=== PATIENT | female | born 1980 | race Caucasian/White ===

== ENCOUNTER 2020-04-09 14:10 | Inpatient (IN) | payer BC, OTHER ==
[2020-04-09 14:49] LABS: #Lymphocytes 1.5 thou/uL (1.20-3.40); #Monocytes 1.5 thou/uL (0.11-0.59); #Neutrophils 11.7 thou/uL (1.40-6.50); %Eosinophils 0.1 % (0.0-10.0); %Lymphocytes 10.5 % (21.0-51.0); %Monocytes 9.9 % (0.0-10.0); %Neutrophils 79.5 % (42.0-75.0); Hemoglobin 11.6 g/dL (12.0-16.0); Mean Corpuscular HGB CONC 35.4 g/dL (32.0-36.0); Mean Corpuscular Hemoglobin 32.8 pg (27.0-31.0); Mean Corpuscular Volume 92.6 fL (78.0-98.0); Mean Platelet Volume 7.4 fL (7.4-10.4); Platelet Count 371 thou/uL (130-400); RBC Distribution Width 12.5 % (11.5-14.5); Red Blood Cell (RBC) Count 3.53 mill/uL (4.20-5.40); White Blood Cell (WBC) Count 14.7 thou/uL (4.8-10.8)
[2020-04-09 14:56] LABS: BHCG - Serum Negative (NEGATIVE); Pregs Control Background? CLEAR/WHITE (CLR/WHITE); Pregs Control Bar Appear? YES (CONTROL BAR)
[2020-04-09 15:05] LABS: ALT (SGPT) 253 U/L (8-55); AST (SGOT) 876 U/L (5-34); Albumin 4.3 g/dL (3.5-5.0); Alkaline Phosphatase 56 U/L (40-110); Anion Gap 34 mmol/L (10-20); BUN (Urea Nitrogen) 79 mg/dL (7.0-18.7); Bilirubin, Total 0.6 mg/dL (0.2-1.2); Calc. Creatinine Clearance 0 mL/min (70-130); Calcium 7.4 mg/dL (7.8-10.44); Carbon Dioxide 20 mmol/L (22-29); Chloride 88 mmol/L (98-107); Estimated GFR-MDRD 5; Globulin 3.3 g/dL (2.4-3.5); Glucose 100 mg/dL (70-105); Potassium 5.6 mmol/L (3.5-5.1); Protein, Total 7.6 g/dL (6.0-8.3); Sodium 136 mmol/L (136-145)
[2020-04-09 15:08] LABS: Bilirubin Negative (Negative); Blood, Urine 1+ (Negative); Clarity Turbid (Clear); Glucose, Urine (Dipstick) 70 mg/dL (Negative); Leukocyte Negative Leu/uL (Negative); Nitrite Negative (Negative); Protein, Urine (Dipstick) 100 mg/dL (Neg-Trace); RBC/HPF 0-3 HPF (0-3); Squamous Epithelial 0-3 HPF (0-3); Urobilinogen Normal mg/dL (Less than 2); WBC/HPF 0-3 HPF (0-3)
[2020-04-09 15:10] LABS: Acetaminophen Less than 6.0 mcg/mL (10.0-30.0); Alcohol Less than 10 mg/dL (Less than 10); Salicylate Less than 8.0 mg/dL (15.0-30.0)
[2020-04-09 15:10] LABS: Amphetamine Not Detected (NotDetected); Barbiturates Screen Not Detected (NotDetected); Benzodiazepine Screen Detected (NotDetected); Cocaine Metabolite Screen Not Detected (NotDetected); Medtox Control Line Valid? VALID (VALID); Medtox Reader # READER 4; Methadone Not Detected (NotDetected); Methamphetamine Not Detected (NotDetected); Opiate Screen Detected (NotDetected); Oxycodone Screen Not Detected (NotDetected); Phencyclidine (PCP) Not Detected (NotDetected); THC/Cannabinoid Screen Not Detected (NotDetected); Tricyclic Screen Detected (NotDetected)
[2020-04-09 15:16] LABS: Bacteria/HPF None Seen HPF (None Seen); Renal Epithelial 0-3 HPF (None Seen); Transitional Epithelial 0-3 HPF (None Seen)
[2020-04-09] MEDS ORDERED: Ondansetron PF 4 MG/2 ML Vial ONE (15:26)
[2020-04-09] MEDS ORDERED: Aspirin 81 mg Enteric Coated Tablet ONE (15:26)
[2020-04-09 15:36] LABS: CKMB 149.1 ng/mL (0-6.6)
[2020-04-09] MEDS ORDERED: Senokot S 8.6-50 MG TAB PO PRN (15:38)
--- NOTE | 2020-04-09 15:38 | RAD ---
RADIOGRAPH CHEST 1 VIEW: DATE: 04/09/2020 TIME: 2:54 PM HISTORY: 39-year-old female with nausea and vomiting COMPARISON: none FINDINGS: Mildly elevated right hemidiaphragm with subsegmental atelectasis at the base of right lower lobe. Th e rest of the visualized lung leija are clear. No cardiomegaly. No pneumothorax. IMPRESSION: Mildly elevated right hemidiaphragm with subsegmental atelectasis at base of right lower lobe.
--- NOTE | 2020-04-09 15:47 | RAD ---
RADIOGRAPH LEFT FEMUR 2VIEWS: DATE: 04/09/2020 HISTORY: 39-year-old female with left thigh pain FINDINGS: There is no evidence of fracture, periostitis, permeative lesion, osteolytic lesion, or osteoblastic lesion. No radiopaque foreign body, abnormal soft tissue calcification, or subcutaneous emphysema is identified. IMPRESSION: Negative
[2020-04-09] MEDS ORDERED: Morphine 4 MG/ML VIAL ONE (16:04)
[2020-04-09] MEDS ORDERED: Sodium Chloride 0.9% 1,000 ML IV SCH (16:15)
[2020-04-09 16:57] LABS: INR-International Normal Ratio 1.1; Prothrombin Time 14.1 sec (12.0-14.7)
[2020-04-09 17:04] LABS: Anion Gap 25 mmol/L (10-20); BUN (Urea Nitrogen) 75 mg/dL (7.0-18.7); Calc. Creatinine Clearance 0 mL/min (70-130); Calcium 6.3 mg/dL (7.8-10.44); Carbon Dioxide 19 mmol/L (22-29); Chloride 95 mmol/L (98-107); Estimated GFR-MDRD 6; Glucose 96 mg/dL (70-105); Lipase 454 U/L (8-78); Potassium 4.4 mmol/L (3.5-5.1); Sodium 135 mmol/L (136-145)
[2020-04-09 17:08] LABS: PTT 19.1 sec (22.9-36.1)
[2020-04-09 17:13] LABS: D-Dimer Test 4.28 *mcg/mL (0.27-0.43)
[2020-04-09 17:22] LABS: Troponin I 0.113 ng/mL (< 0.028)
[2020-04-09 17:23] LABS: Ferritin 222.95 ng/mL (10-291); Thyroid Stimulating Hormone 0.9749 uIU/mL (0.35-4.94)
[2020-04-09 17:40] LABS: HBCM Index 0.08 S/CO (0-0.79); HBSAg Index 0.09 S/CO (0-0.99); Hep A IgM AB Non-Reactive (NonReactive); Hep A IgM S/CO 0.14 S/CO (0-0.79); Hep B Surf Ag Non-Reactive S/CO (NonReactive); Hep C IgG Ab Non-Reactive (NonReactive); Hep C Index 0.26 S/CO (0-0.79); Hepatitis B Core IgM Abs Non-Reactive (NonReactive)
--- NOTE | 2020-04-09 19:03 | ULT ---
RENAL SONOGRAM: History: Anuria FINDINGS: Right kidney is 8.2 cm length and left is 9.9 cm. Each has a normal appearance without evidence of ma ss, stone, or hydronephrosis. Urinary bladder is decompressed by a Norwood catheter. IMPRESSION: No abnormalities are demonstrated. POS: BST
[2020-04-09] MEDS ORDERED: tiZANidine HCl 4 MG TAB PO SCH (21:00)
[2020-04-09] MEDS: Sodium Chloride 0.9% 1,000 ML IV SCH ×2 (21:06→23:11)
[2020-04-09] MEDS: Acetaminophen 325 MG TAB PO PRN (21:06)
[2020-04-09] MEDS: Diazepam 5 MG TAB PO SCH (21:06)
[2020-04-09 23:50] LABS: CKMB 158.7 ng/mL (0-6.6)
[2020-04-10] MEDS: oxyCODONE/Acetaminophen 5 mg/325 mg Tablet PO PRN ×2 (00:04→08:53)
[2020-04-10 04:37] LABS: #Eosinphils 0.1 thou/uL (0.0-0.7); #Lymphocytes 1.4 thou/uL (1.20-3.40); #Monocytes 0.7 thou/uL (0.11-0.59); #Neutrophils 7.5 thou/uL (1.40-6.50); %Basophils 0.1 % (0.0-1.0); %Eosinophils 0.5 % (0.0-10.0); %Lymphocytes 14.1 % (21.0-51.0); %Monocytes 7.7 % (0.0-10.0); %Neutrophils 77.6 % (42.0-75.0); Hemoglobin 9.7 g/dL (12.0-16.0); Mean Corpuscular Hemoglobin 31.8 pg (27.0-31.0); Mean Corpuscular Volume 93.6 fL (78.0-98.0); Mean Platelet Volume 7.2 fL (7.4-10.4); Platelet Count 291 thou/uL (130-400); RBC Distribution Width 12.5 % (11.5-14.5); Red Blood Cell (RBC) Count 3.05 mill/uL (4.20-5.40); White Blood Cell (WBC) Count 9.7 thou/uL (4.8-10.8)
[2020-04-10 04:59] LABS: Anion Gap 21 mmol/L (10-20); BUN (Urea Nitrogen) 72 mg/dL (7.0-18.7); Calc. Creatinine Clearance 12 mL/min (70-130); Carbon Dioxide 22 mmol/L (22-29); Chloride 97 mmol/L (98-107); Estimated GFR-MDRD 7; Glucose 115 mg/dL (70-105); Potassium 4.2 mmol/L (3.5-5.1); Sodium 136 mmol/L (136-145)
[2020-04-10 05:38] LABS: CK (CPK) Greater than 40000 U/L (29-168)
--- NOTE | 2020-04-10 05:41 | HP ---
CHIEF COMPLAINT: Generalized weakness and left leg pain. HISTORY OF PRESENT ILLNESS: A 39-year-old female with a history of hypertension ; depression, on several sedative medications; presenting with overall generalized weakness along with myalgia. Electrolytes are quite abnormal with potassium of 5.5 and creatinine of 8.66 without prior history of kidney issues. The patient said that she had some drinks on Thursday and starting next day that she was not feeling well. She is taking lisinopril, hydrochlorothiazide regularly except yesterday. Initial evaluation showed that she was tachycardic with a rate of 130 and low blood pressure that are improved after mL fluid given to her. Imaging studies with a chest x-ray did not show any significant infiltrate or other abnormalities. The patient will be admitted for acute kidney injury workup. REVIEW OF SYSTEMS: 13-point review of systems reviewed. The patient denies any fever, night sweats, or chills. No risk factors for COVID exposure. 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 Denies any headache, blurriness, tingling, numbness in her extremities, except left leg pain. No nausea, vomiting, abdominal pain, constipation, grace hematuria, dysuria, or hematochezia. Rest of the review of systems is negative. ALLERGIES: NO KNOWN DRUG ALLERGIES. MEDICATIONS: Not updated yet, but it appears she is on: 1. Lisinopril. 2. Hydrochlorothiazide. 3. Seroquel 300 mg. 4. Diazepam, unknown dose. 5. Tizanidine, unknown dose. The patient does not remember her medication doses. It needs to be updated. SOCIAL HISTORY: The patient drinks occasionally. No smoking. She lives with her . FAMILY HISTORY: Significant for diabetes. PHYSICAL EXAMINATION: VITAL SIGNS: She is afebrile currently, her blood pressure improved after IV fluid and currently her systolic is in the 90s. GENERAL: The patient is in mild distress, but she insists on her Seroquel, tizanidine, and diazepam to be given at bedtime. Otherwise, she cannot sleep. CARDIOVASCULAR: Regular rate and rhythm without murmurs, rubs, or gallops. LUNGS: Clear to auscultation bilaterally without wheezing, rales, or rhonchi. ABDOMEN: Soft, nontender, and nondistended. Good bowel sounds. EXTREMITIES: Without any pitting edema. She is able to move her extremities spontaneously. No bony abnormalities noted in her lower extremities. LABORATORY DATA: Her potassium 5.6, BUN is 79, and creatinine 8.66. Her troponin 0.137. CPK is 149. Her liver function test; AST 876, ALT 253, alkaline phosphatase 56. Her UA shows proteinuria as well as hematuria. It is turbid, but no bacteria or pyuria. UDS showed tricyclic and benzo positive. IMPRESSION AND PLAN: This is a 39-year-old female without prior history of kidney dysfunction, presenting with: 1. Severe dehydration. 2. Acute renal failure secondary to being on diuretics without close monitoring and likely alcohol use on thursday exacerbated the dehydration. 3. Generalized weakness and myalgia secondary to acute kidney dysfunction. Hematuria and proteinuria need to be followed. 4. Abnormal troponin probably reflective of acute kidney dysfunction. Patient denies any grace chest pain. Metabolic mismatch, type II demand ischemia. 5. Observe her in the tele, serial troponins. Aggressive hydration. Repeat BMP this evening. Along with troponin, hopefully this will be trending down. If it is still higher, then we need to consult Cardiology this evening. We will also check her TSH, CK level as well as lipase. 6. Transaminase elevation, probably reflective of her alcohol use, however, dehydration also contributing to the high number. Hydration. We will check her acute hepatitis panel as well. 7. Avoid aspirin and nephrotoxic medications. Hold the lisinopril and hydrochlorothiazide for now. 8. Also, I will consult gis scientist today. 9. Rest of the management based on clinical course. Job ID: [id number]
[2020-04-10] MEDS: Sodium Chloride 0.9% 1,000 ML IV SCH ×4 (06:30→20:22)
[2020-04-10] MEDS: Sodium Bicarbonate Tab 325 MG TAB PO SCH ×3 (08:55→20:22)
[2020-04-10] MEDS: Diazepam 5 MG TAB PO SCH ×2 (08:55→20:22)
[2020-04-10] MEDS ORDERED: Calcium Gluconate 4.6 MEQ in Sodium Chloride 0.9% 100 ML IVPB ONE (09:05)
[2020-04-10 09:22] LABS: Troponin I 0.074 ng/mL (< 0.028)
--- NOTE | 2020-04-10 09:45 | CON ---
DATE OF CONSULTATION: 04/10/2020 SERVICE: Nephrology. REASON FOR CONSULTATION: Hyperkalemia and acute kidney injury. REQUESTING PHYSICIAN: Dr. Araceli Hastings. HISTORY OF PRESENT ILLNESS: A 39-year-old female with known history of hypertension, depression, and chronic insomnia on several psychotropic medications, was admitted due to overall generalized weakness associated with myalgia and intractable nausea and vomiting. The patient reportedly took some alcohol on April 06, and by the next day, she started having intractable nausea and vomiting, which was later associated with generalized weakness and myalgia and difficulty ambulating, hence presentation to the ER. Of note, the patient is on lisinopril/hydrochlorothiazide and metoprolol at home for hypertension among other psychotropic medications. She reportedly was unable to keep anything down prior to presentation. On presentation, the patient was found to have hyperkalemia as well as markedly elevated BUN and creatinine. She also was noted to have tachycardia and hypotension, which improved with IV fluid therapy. She continued to complain of generalized myalgia as well as decreased range of motion of lower extremities due to pain. She denied recreational drug use other than alcohol. She also denied NSAID use. PAST MEDICAL HISTORY: 1. Hypertension. 2. Insomnia. 3. Depression. PAST SURGICAL HISTORY: Tubal ligation. FAMILY HISTORY: Significant for diabetes in mother. SOCIAL HISTORY: The patient drinks occasionally. Denied smoking or recreational drug use. Lives with . ALLERGIES: NO KNOWN DRUG ALLERGIES REPORTED. HOME MEDICATIONS: 1. Xanax 0.5 mg p.o. daily at bedtime. 2. Diazepam 10 mg p.o. daily at bedtime as needed for insomnia. 3. Hydrochlorothiazide 25 mg p.o. daily. 4. Lisinopril 10 mg p.o. daily. 5. Metoprolol succinate 100 mg p.o. daily. 6. Norethindrone 0.35 mg p.o. daily. 7. Seroquel 300 mg p.o. daily at bedtime. 8. Tizanidine 4 mg p.o. daily at bedtime. REVIEW OF SYSTEMS: 12-point review of system performed was negative other than pertinent positives and negatives included in the history of present illness. PHYSICAL EXAMINATION: VITAL SIGNS: Temperature 98.0, pulse 110, respiratory rate 16, SpO2 of 95% on room air, blood pressure is 97/55. I and O in the last 24 hours showed total intake of 2000 with output of 600. GENERAL: Female, in no obvious distress. Afebrile. Anicteric. Acyanotic. HEENT: Normocephalic and atraumatic. Oral mucosa is moist. NECK: Short thick neck with excess soft tissue noted. CARDIOVASCULAR: Regular rhythm and rate, but tachycardic. RESPIRATORY: Fair air entry bilaterally with no obvious crackle or rhonchi or use of accessory muscles. GI: Full, soft, nondistended. Normal bowel sounds. Anterior abdominal wall tenderness noted. UROGENITAL: Norwood catheter is in place, draining some urine. EXTREMITIES/MUSCULOSKELETAL: Fullness and tenderness of the body, especially bilateral thighs and back noted. No obvious pitting edema appreciated. FREIGHT UNLOADER: Conscious, alert, oriented x3 with appropriate mental status. Cranial nerves 2 through 12 are grossly intact. DIAGNOSTIC DATA: CBC showed WBC count of 9.7, hemoglobin of 9.7, MCV of 93.6, and platelet of 291. However, on presentation on April 09; WBC was 14.7, hemoglobin 11.6, platelet 371. BMP today showed sodium 136, potassium 4.2, chloride 97, CO2 of 22, BUN 72, creatinine 6.77, glucose 115, calcium 6.0. CPK is greater than 40,000. On presentation, however, CMP showed sodium 136, potassium 5.6, chloride 88, CO2 of 20, BUN 79, creatinine 8.66, glucose 100, calcium 7.4, total bilirubin 0.6, AST 876, ALT 253, alkaline phosphatase 56, total protein 7.6, albumin 4.3, globulin 3.3. Urinalysis on presentation showed light orange, turbid urine with pH of 5.5, specific gravity of 1.023. Urine protein of 100 mg/dL, glucose 70, negative ketone, 1+ blood, negative nitrite, bilirubin, and leukocyte esterase. Microscopy showed 0 to 3 rbc and 0 to 3 wbc. Urine drug screen on presentation was positive for opiate, tricyclic, and benzodiazepine. Of note, the patient is on Seroquel and benzodiazepine. She further admitted to taking [place] yesterday for pain prior to presentation. Renal ultrasound performed yesterday on April 09 showed right kidney measuring 8.2 in length and left 9.9 with normal appearance without evidence of mass, stone, or hydronephrosis. ASSESSMENT: 1. Acute renal failure: Due to rhabdomyolysis and volume depletion. The patient was on thiazide and diuretics and developed nausea and vomiting prior to presentation. Found to have markedly elevated CPK of more than 40,000. 2. Severe dehydration with hypotension and tachycardia. 3. Hyperkalemia: Due to acute renal failure. 4. Hypotension due to volume depletion and continued use of antihypertensives. 5. Metabolic acidosis. 6. Hemoconcentration due to dehydration with hemoglobin dropping from 11 to 9 with IV fluid therapy. 7. Severe rhabdomyolysis with generalize myalgia. 8. Hypocalcemia. 9. Transaminitis: Most likely due to rhabdomyolysis. 10. History of hypertension. 11. History of chronic insomnia. PLAN: 1. We will escalate IV fluid therapy. We will increase normal saline to 250 mL/h. 2. We will also start oral sodium bicarbonate therapy. 3. We will monitor volume status and start Lasix if indicated to prevent fluid overload. 4. We will monitor CPK serially. 5. We will also get vitamin D. 6. Avoid nephrotoxic agents. 7. We will give calcium gluconate x1 due to hypocalcemia. 8. Further treatment to follow depending on hospital course. Many thanks for involving us in the care of this patient. We will follow along with you. Job ID: [id number]
[2020-04-10] MEDS ORDERED: Vancomycin 1 GM in Premix Bag 1 BAG IVPB SCH (10:00)
[2020-04-10] MEDS ORDERED: Calcium Gluc 4.6 MEQ/10 ML (100 MG/ML) SLOW IVP SCH (13:07)
--- NOTE | 2020-04-10 13:10 | PDOC.HOSPP ---
- Subjective Encounter Date: 04/10/20 Encounter Time: 09:50 Subjective: generalized ache, mom at bediside; explained expect myalgia given LAYNE and CP of >40K. Cr coming down. US neg for DVT. - Objective Vital Signs & Weight: Vital Signs (12 hours) Temp Pulse Resp BP Pulse Ox 04/10/20 11:15 98.9 F 117 H 16 108/72 96 04/10/20 07:40 98.0 F 110 H 16 97/55 L 95 04/10/20 03:24 97.7 F 105 H 20 87/49 L 99 Weight Weight 158 lb 9.6 oz I&O: 04/09/20 04/10/20 04/11/20 06:59 06:59 06:59 Intake Total 2000 Output Total 600 Balance 1400 Result Diagrams: 04/10/20 04:15 04/10/20 04:15 Hospitalist ROS - Medication Medications: Active Medications Generic Name Dose Route Start Last Admin Trade Name Freq PRN Reason Stop Dose Admin Acetaminophen 650 mg 04/09/20 15:38 04/09/20 21:06 Tylenol PO 650 mg Q4H PRN Administration Headache/Fever/Mild Pain (1-3) Diazepam 5 mg 04/09/20 21:00 04/10/20 08:55 Valium PO 5 mg BID AB Administration Sodium Chloride 1,000 mls @ 250 mls/hr 04/10/20 06:30 04/10/20 08:55 Normal Saline 0.9% IV 1,000 mls .Q4H AB Administration Sodium Bicarbonate 650 mg 04/10/20 09:00 04/10/20 08:55 Bicarbonate, Sodium PO 650 mg TID AB Administration - Exam General Appearance: NAD, awake alert Eye: PERRL ENT: normocephalic atraumatic Neck: supple Heart: RRR, normal peripheral pulses Respiratory: CTAB, normal chest expansion Gastrointestinal: soft, normal bowel sounds Extremities: no cyanosis Neurological: no focal deficits Psychiatric: A&O x 3 Hosp A/P - Plan Severe Dehdyratoin LAYNE Rhabdomyolysis --..myalgia given LAYNE and CP of >40K. --Cr coming down. --US neg for DVT. --cw aggressive hydration fw on UA for hemoglobinuria --cycle ck level leukocvytosis -resolved Hyopcalcemia --replace Transaminitis - will get stat one -acute hep panel neg. Vit D def'y///TSH nl -started on supplement Abn troponin without cp -Likely part of rhabdo adn LAYNE -however, consider card consult as CKMB also high at 157. GPC bacteremia -appears contaminant -he.e will start one dose of renally dosed vanc and repeat margot --if neg., will dc vanc., talk to DR. Flannery on this, given severe RF.
[2020-04-10 13:56] LABS: Anion Gap 19 mmol/L (10-20); BUN (Urea Nitrogen) 70 mg/dL (7.0-18.7); Calc. Creatinine Clearance 13 mL/min (70-130); Calcium 6.3 mg/dL (7.8-10.44); Carbon Dioxide 19 mmol/L (22-29); Chloride 100 mmol/L (98-107); Estimated GFR-MDRD 7; Glucose 115 mg/dL (70-105); Potassium 3.7 mmol/L (3.5-5.1); Sodium 134 mmol/L (136-145)
[2020-04-10 13:57] LABS: ALT (SGPT) 166 U/L (8-55); AST (SGOT) 554 U/L (5-34); Albumin 2.9 g/dL (3.5-5.0); Alkaline Phosphatase 52 U/L (40-110); Bilirubin, Direct 0.2 mg/dL (0.1-0.3); Bilirubin, Total 0.4 mg/dL (0.2-1.2); Protein, Total 5.7 g/dL (6.0-8.3)
[2020-04-10 14:36] LABS: CK (CPK) Greater than 40000 U/L (29-168)
[2020-04-10] MEDS: Ondansetron PF 4 MG/2 ML Vial SLOW IVP PRN (14:36)
[2020-04-10] MEDS: Acetaminophen 325 MG TAB PO PRN ×2 (15:02→20:21)
[2020-04-10] MEDS ORDERED: Metoprolol Tartrate 5 MG/5 ML VIAL IVP PRN (20:20)
--- NOTE | 2020-04-10 21:42 | CON ---
DATE OF CONSULTATION: 04/10/2020 REASON FOR CONSULTATION: Slight increased troponin in the setting of rhabdomyolysis. HISTORY OF PRESENT ILLNESS: Ms. Hanley is a 39-year-old woman, who had nausea, vomiting, and progressive weakness. The patient was taking ISIAH inhibitors with diuretic. She had intense weakness, ultimately she was brought to the emergency room yesterday. The patient was found to have a CPK determination of over 40,000, troponin level 0.073, and CPK-MB 158.7. There is no chest pain or pressure, just intense weakness. MEDICATIONS: At home are; 1. Metoprolol 100 mg a day. 2. Lisinopril 10 mg a day. 3. Hydrochlorothiazide 25 mg a day. PAST MEDICAL HISTORY: Past history is negative for any cardiac operations or procedures or any cardiac problems at all. Positive for history of hypertension. REVIEW OF SYSTEMS: CONSTITUTIONAL: Positive for severe weakness and fatigue. VISION: No changes. HEARING: No changes. PULMONARY: No cough or wheezing. GASTROINTESTINAL: No nausea, vomiting, or diarrhea. SKIN: No rashes. NEUROLOGIC: No unilateral weakness or numbness. PSYCHIATRIC: No unusual depression or anxiety. PHYSICAL EXAMINATION: GENERAL: This is a 39-year-old woman. She said she feels intensely weak. VITAL SIGNS: Blood pressure 120/76 and pulse 118 and sinus. HEENT: Eyes, sclerae nonicteric. Mouth, mucous membranes moist. NECK: Supple. No lymphadenopathy. LUNGS: Clear. CARDIAC: She is tachycardic. There is no murmur, rub, or gallop. ABDOMEN: Soft and nontender. EXTREMITIES: Warm and dry. No clubbing or cyanosis. No edema. LABORATORY DATA: Cardiac enzymes, CPK was over 40,000 and troponin 0.074. Her EKG shows sinus tachycardia. An EKG done here reveals some nonspecific ST changes that was one done here on the floor not of 12-lead, but it is lead I, II, II, aVR, aVL, aVF, and V3. Echocardiogram showed normal left ventricular function. Ejection fraction 60% to 65%. Normal study. CONCLUSION: 1. Rhabdomyolysis. 2. No evidence of any cardiac involvement. 3. Renal failure, acute. The patient was given a liter of fluid yesterday in the emergency room. PLAN: 1. Continue fluid repletion. 2. We would recommend reducing fluid rate. She is not making much urine. She could get volume overloaded. Hopefully, she will get a return of renal function when the rhabdomyolysis will be improved. Job ID: [id number]
[2020-04-11] MEDS: Sodium Chloride 0.9% 1,000 ML IV SCH ×5 (01:03→22:15)
[2020-04-11 04:45] LABS: ALT (SGPT) 125 U/L (8-55); AST (SGOT) 337 U/L (5-34); Albumin 2.6 g/dL (3.5-5.0); Alkaline Phosphatase 61 U/L (40-110); Anion Gap 18 mmol/L (10-20); BUN (Urea Nitrogen) 69 mg/dL (7.0-18.7); Bilirubin, Total 0.3 mg/dL (0.2-1.2); Calc. Creatinine Clearance 14 mL/min (70-130); Calcium 6.1 mg/dL (7.8-10.44); Carbon Dioxide 15 mmol/L (22-29); Chloride 106 mmol/L (98-107); Estimated GFR-MDRD 7; Globulin 2.6 g/dL (2.4-3.5); Glucose 96 mg/dL (70-105); Protein, Total 5.2 g/dL (6.0-8.3); Sodium 135 mmol/L (136-145)
[2020-04-11 05:17] LABS: CK (CPK) Greater than 40000 U/L (29-168)
[2020-04-11] MEDS ORDERED: Sodium Chloride 0.9% 1,000 ML IV SCH (06:59)
[2020-04-11] MEDS ORDERED: Furosemide 40 MG/4 ML VIAL SLOW IVP SCH (08:15)
[2020-04-11] MEDS: Ergocalciferol 1.25 MG(50,000 UNITS) CAP PO SCH (09:08)
[2020-04-11] MEDS: Acetaminophen 325 MG TAB PO PRN ×3 (09:08→20:56)
[2020-04-11] MEDS: Diazepam 5 MG TAB PO SCH (09:08)
[2020-04-11] MEDS: Sodium Bicarbonate Tab 325 MG TAB PO SCH ×3 (09:08→20:55)
[2020-04-11] MEDS ORDERED: Calcium Gluc 4.6 MEQ/10 ML (100 MG/ML) SLOW IVP SCH (09:11)
[2020-04-11] MEDS ORDERED: Heparin 5,000 UNITS/ML VIAL SC SCH (09:15)
--- NOTE | 2020-04-11 09:25 | PRG ---
DATE OF SERVICE: 04/11/2020 SUBJECTIVE: Ms. Hanley feels generalized muscle pain and weakness. No chest pain. She is not short of breath. OBJECTIVE: VITAL SIGNS: Her blood pressure is 150/60, pulse is 120 and sinus. LUNGS: Clear. CARDIAC: She is tachycardic. ABDOMEN: Soft, nontender. EXTREMITIES: Moderate to severe edema. LABORATORY DATA: I and O yesterday, there was 5.4 L in, in addition that she got sodium bicarbonate, 750 mL out. The patient's creatinine is unchanged essentially at 6.2. ASSESSMENT: 1. Rhabdomyolysis. 2. Renal failure. 3. Appears to be becoming volume overloaded. PLAN: 1. Reduce intravenous fluid. 2. Lasix has been given. 3. If becomes volume overloaded, may need hemodialysis. 4. Start subcutaneous heparin. 5. Chest x-ray to evaluate to see if she looks volume overloaded. Job ID: [id number]
[2020-04-11 09:41] LABS: Vancomycin, Random 19.4 ug/mL (See Comment)
[2020-04-11 09:45] LABS: Lipase 196 U/L (8-78)
[2020-04-11 09:51] LABS: Actual Bicarbonate (HCO3a) 16.5 mEq/L (22-28); Base Excess (BEa) -7.7 mEq/L (-2.0 to +3.0); Calcium, Ionized (arterial) 0.82 mmol/L (1.12-1.30); Hemoglobin (Hb) 9.2 g/dL (12.0-16.0); O2 Tension (PaO2), arterial 89.1 mmHg (80.0-100.0); Potassium - ABG Lab 3.98 mmol/L (3.70-5.30); pH, Arterial 7.37 (7.35-7.45)
[2020-04-11 09:53] LABS: Puncture Site RRA
[2020-04-11] MEDS ORDERED: Vancomycin 1 GM in Premix Bag 1 BAG IVPB SCH (10:00)
[2020-04-11] MEDS ORDERED: Vancomycin HCl 500 MG in Sodium Chloride 0.9% 100 ML IVPB SCH (10:30)
[2020-04-11] MEDS ORDERED: Metolazone 5 MG TAB PO SCH (10:45)
[2020-04-11 10:53] LABS: CK (CPK) Greater than 40000 U/L (29-168)
--- NOTE | 2020-04-11 11:34 | RAD ---
CHEST 1 VIEW: Date: 04/11/2020 INDICATION: History of tachycardia. COMPARISON: Prior exam dated 04/09/2020. IMPRESSION: Low lung volumes with bibasilar atelectasis. Heart size within normal limits. No acute osseous abnorm ality is noted. POS: BH
--- NOTE | 2020-04-11 11:36 | PDOC.HOSPP ---
- Subjective Encounter Date: 04/11/20 Encounter Time: 10:10 Subjective: talk to spouse and pt at length. spouse talked to me privately and states that she takes several antidepressants for long and wondering whether we can downgrade. D/w Dr. Flannery. her left leg more swollen including the knee. pt feels still lots of pain. getting Xray of the knee and doppler. d/w RN. - Objective Vital Signs & Weight: Vital Signs (12 hours) Temp Pulse Resp BP BP Pulse Ox 04/11/20 08:33 127 H 04/11/20 08:24 97.8 F 125 H 18 117/76 97 04/11/20 03:33 97.9 F 130 H 20 119/62 95 Weight Admit Weight 157 lb 8 oz Weight 168 lb 1.6 oz I&O: 04/10/20 04/11/20 04/12/20 06:59 06:59 06:59 Intake Total 1999 5410 Output Total 600 750 Balance 1400 4660 Result Diagrams: 04/10/20 04:15 04/11/20 04:04 Hospitalist ROS - Medication Medications: Active Medications Generic Name Dose Route Start Last Admin Trade Name Freq PRN Reason Stop Dose Admin Acetaminophen 650 mg 04/09/20 15:38 04/11/20 09:08 Tylenol PO 650 mg Q4H PRN Administration Headache/Fever/Mild Pain (1-3) Diazepam 5 mg 04/09/20 21:00 04/11/20 09:08 Valium PO 5 mg BID AB Administration Ergocalciferol 1.25 mg 04/11/20 09:00 04/11/20 09:08 Drisdol PO 1.25 mg Q7DAYS AB Administration Furosemide 40 mg 04/11/20 08:15 04/11/20 09:08 Lasix SLOW IVP 04/11/20 12:00 40 mg NOW AB Administration Ondansetron HCl 4 mg 04/10/20 13:47 04/10/20 14:36 Zofran SLOW IVP 4 mg Q4H PRN Administration Nausea/Vomiting Quetiapine Fumarate 300 mg 04/10/20 21:00 04/10/20 21:37 Seroquel PO 300 mg HS AB Administration Sodium Bicarbonate 650 mg 04/10/20 09:00 04/11/20 09:08 Bicarbonate, Sodium PO 650 mg TID AB Administration Sodium Chloride 10 ml 06/02/20 21:00 04/11/20 09:24 Flush - Normal Saline IVF 10 ml Q12HR AB Administration - Exam General Appearance: NAD, awake alert Eye: PERRL ENT: normocephalic atraumatic Neck: supple Heart: RRR Respiratory: CTAB, normal chest expansion Gastrointestinal: soft, normal bowel sounds Extremities - other findings: left knee swollen, not able to move her leg as good as the r.. one. Psychiatric: normal affect, normal behavior, A&O x 3 Hosp A/P - Plan Severe Dehdyratoin LAYNE Rhabdomyolysis --..myalgia given LAYNE and CP of >40K. --Cr coming down. --US neg for DVT. --cw aggressive hydration fw on UA for hemoglobinuria --cycle ck level leukocvytosis -resolved Hyopcalcemia --replace Transaminitis - will get stat one -acute hep panel neg. Vit D def'y///TSH nl -started on supplement Abn troponin without cp -Likely part of rhabdo adn LAYNE -however, consider card consult as CKMB also high at 157. GPC bacteremia -appears contaminant -he.e will start one dose of renally dosed vanc and repeat margot --if neg., will dc vanc., talk to DR. Flannery on this, given severe RF. 3rd fw on knee xray and doppler of L.leg cw aggressive hydration -appreciate cardiol and renal input. -reducing the doses of seroquel and valium, instead of abruptly stopping it -both pt and spouse updated on this matter.
--- NOTE | 2020-04-11 12:38 | ULT ---
LEFT LOWER EXTREMITY DOPPLER VENOUS ULTRASOUND: Date: 04/11/2020 INDICATION: Left leg edema with pain. TECHNIQUE: Ruiz scale, color Doppler, and vascular duplex with spectral analysis was performed of the deep venou s structures of the left lower extremity. The common femoral vein, superficial femoral vein, proximal greater saphenous vein, proximal greater profunda vein, popliteal, and posterior tibial veins were a ssessed. FINDINGS: Normal compression, flow, and augmentation was seen within the deep venous structures of the left low er extremity. IMPRESSION: No evidence of deep venous thrombosis in the left lower extremity. POS: JARAD
--- NOTE | 2020-04-11 12:41 | RAD ---
LEFT KNEE 4 VIEWS: Date: 04/11/2020 INDICATION: History of left knee pain and knee effusion. COMPARISON: None. FINDINGS: There is a joint capsular distention. No acute fracture is grossly evident. There is soft tissue swel ling of the left leg. IMPRESSION: Soft tissue swelling of the left leg and joint capsular distention. No acute osseous abnormality. POS: BH
[2020-04-11] MEDS: Sodium Bicarbonate 150 MEQ in Dextrose 5% in Water 1,000 ML IV SCH (12:54)
[2020-04-11] MEDS: Furosemide 40 MG/4 ML VIAL SLOW IVP SCH ×2 (14:39→21:01)
--- NOTE | 2020-04-11 17:30 | PRG ---
DATE OF SERVICE: 04/11/2020 SERVICE: Nephrology. SUBJECTIVE: A 39-year-old female seen in followup for acute renal failure and rhabdomyolysis. The patient was admitted due to generalized weakness, body aches, hypotension as well as intractable nausea and vomiting after alcohol use. The patient continues to complain of left lower extremity weakness and decreased range of motion as well as generalized swelling and tightness. She denied falls or trauma to the left lower extremity. The back and generalized body ache have improved. Denied nausea, vomiting or diarrhea. OBJECTIVE: VITAL SIGNS: Temperature 97.8, pulse 125, respiratory rate 18, SpO2 of 97% on room air, blood pressure is 117/76. I and O in the last 24 hours showed total intake of 5410 with total output of 750. GENERAL: Middle-age female, in no obvious distress. Afebrile. Anicteric. Acyanotic. HEENT: Normocephalic, atraumatic. Oral mucosa is moist. CARDIOVASCULAR: Regular rhythm and rate, but tachycardic. RESPIRATORY: Fair air entry bilateral, though decreased at both bases posteriorly. No obvious crackle or rhonchi or use of accessory muscles appreciated. GI: Full, soft, nontender, nondistended with normal bowel sounds. EXTREMITIES: Diffuse and generalized fullness-like swelling of the left lower extremity associated with decreased range of motion at the knee and thigh. Sensation is grossly intact. The patient however is able to wiggle the left toe. Other extremities are grossly unremarkable. DIAGNOSTIC DATA: Chemistry: Sodium 135, potassium 4.0, chloride 106, CO2 of 16, BUN 69, and creatinine 6.21. Arterial blood gas showed pH of 7.37, pCO2 of 29, pO2 of 89.1, and ionized calcium 0.82. ASSESSMENT: 1. Acute renal failure: Due to hemodynamic factors related to volume depletion, lisinopril, GI losses, hypotension, and pigment-induced nephropathy related to rhabdomyolysis. 2. Hypotension: Improved with fluid therapy. 3. Rhabdomyolysis with CPK more than 40,000. 4. Dehydration with hypotension and hemoconcentration. 5. Metabolic acidosis. 6. Hypocalcemia. 7. Vitamin D deficiency. 8. Acute transaminitis due to rhabdomyolysis. PLAN: 1. Continue aggressive IV fluid therapy. We will, however, decrease normal saline to 150 mL/h .. 2. We will add diuretics due to poor urine output. 3. We will also replete plasma calcium with calcium gluconate as well as oral calcium gluconate. 4. We will continue supplementation of vitamin D. 5. We will follow CPK and renal function. 6. Further treatment to follow depending on hospital course. 04/11/2020 - Continuation /[id number] added to this Progress Note. Job ID: [id number]
[2020-04-11] MEDS: Heparin 5,000 UNITS/ML VIAL SC SCH (20:55)
[2020-04-11] MEDS: Diazepam 2 MG TAB PO SCH (20:56)
[2020-04-12] MEDS: Sodium Bicarbonate 150 MEQ in Dextrose 5% in Water 1,000 ML IV SCH (00:49)
[2020-04-12] MEDS: Acetaminophen 325 MG TAB PO PRN ×4 (00:49→19:39)
[2020-04-12] MEDS: Furosemide 40 MG/4 ML VIAL SLOW IVP SCH (06:08)
[2020-04-12] MEDS: Sodium Chloride 0.9% 1,000 ML IV SCH ×5 (06:13→19:40)
[2020-04-12 07:30] LABS: ALT (SGPT) 91 U/L (8-55); AST (SGOT) 207 U/L (5-34); Albumin 2.5 g/dL (3.5-5.0); Alkaline Phosphatase 70 U/L (40-110); Anion Gap 22 mmol/L (10-20); BUN (Urea Nitrogen) 75 mg/dL (7.0-18.7); Bilirubin, Total 0.3 mg/dL (0.2-1.2); Calc. Creatinine Clearance 13 mL/min (70-130); Calcium 6.1 mg/dL (7.8-10.44); Carbon Dioxide 16 mmol/L (22-29); Chloride 105 mmol/L (98-107); Estimated GFR-MDRD 7; Globulin 2.7 g/dL (2.4-3.5); Glucose 115 mg/dL (70-105); Potassium 4.3 mmol/L (3.5-5.1); Protein, Total 5.2 g/dL (6.0-8.3); Sodium 139 mmol/L (136-145)
[2020-04-12] MEDS ORDERED: Sodium Chloride 0.9% 1,000 ML IV SCH (08:20)
[2020-04-12] MEDS: Diazepam 2 MG TAB PO SCH ×2 (09:18→21:28)
[2020-04-12] MEDS: Sodium Bicarbonate Tab 325 MG TAB PO SCH ×3 (09:18→21:29)
[2020-04-12] MEDS: Heparin 5,000 UNITS/ML VIAL SC SCH ×2 (09:18→21:28)
[2020-04-12] MEDS: Ondansetron PF 4 MG/2 ML Vial SLOW IVP PRN ×2 (09:27→18:17)
[2020-04-12] MEDS ORDERED: Metoprolol Tartrate 5 MG/5 ML VIAL IVP PRN (09:31)
[2020-04-12] MEDS: Furosemide 100 MG in Sodium Chloride 0.9% 90 ML IVPB SCH (09:31)
--- NOTE | 2020-04-12 09:55 | PRG ---
DATE OF SERVICE: SUBJECTIVE: Ms. Hanley looks better today. She has no chest pain. She does not look short of breath. OBJECTIVE: VITAL SIGNS: Her blood pressure is 117/75. Pulse is 90, but she may have received some metoprolol, her pulse earlier was 112. LUNGS: Clear. CARDIAC: Normal S1, normal S2. ABDOMEN: Soft and nontender. EXTREMITIES: Only kgrg-io-siipwkzb edema. Encouragingly the patient had 1425 mL of urine out yesterday, which is by far the best she has had. ASSESSMENT: 1. Rhabdomyolysis. 2. Renal failure appears to be improving with increased renal output. Her creatinine is still 6.7, but at least her urine output is better. 3. The CPK is down to 31,000. 4. No evidence of heart failure on chest x-ray yesterday. PLAN: 1. Go back on the normal saline at 150 an hour and she is on bicarb as well. 2. She is also on furosemide. 3. She is on enoxaparin. 4. She received metolazone yesterday. 5. We will change the metoprolol to q.6 hours p.r.n. since it looks like it is a reactive sinus tachycardia and we will reduce dose. Job ID: [id number] MTDD
[2020-04-12] MEDS ORDERED: Calcium Gluconate 9.2 MEQ, Admixture Fee 1 EACH in Sodium Chloride 0.9% 100 ML IVPB SCH (10:18)
[2020-04-12 10:39] LABS: Vancomycin, Random 22.6 ug/mL (See Comment)
--- NOTE | 2020-04-12 10:55 | PRG ---
DATE OF SERVICE: 04/12/2020 SERVICE: Nephrology. SUBJECTIVE: A 39-year-old female, seen in followup for acute renal failure and rhabdomyolysis. The patient continued to complain of left lower extremity swelling and decreased range of motion as well as inability to move the limbs appropriately. Generalized body ache has improved. She also complains of some swelling of both upper limbs. Denied nausea, vomiting, or abdominal pain. OBJECTIVE: VITAL SIGNS: Temperature 98.4, pulse 89, respiratory rate 16, SpO2 of 97% on room air, and blood pressure is 117/75. Intake and output in the last 24 hours showed total intake of 5445 with total output of 1425. GENERAL: Female, in no obvious distress, anxious however. HEENT: Normocephalic, atraumatic. Oral mucosa is moist. CARDIOVASCULAR: Regular rhythm and rate with normal heart sounds 1 and 2. RESPIRATORY: Fair air entry bilateral with no obvious crackles or rhonchi or use of accessory muscles. Air entry, however, is decreased at both bases posteriorly. GI: Full, soft, nontender, nondistended with normal bowel sounds. EXTREMITIES: Marked edema/fullness of left lower extremity globally. Mild edema of other extremities is noted as well. UROGENITAL: Norwood catheter is in place draining some urine. 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 Cranial nerves 2 through 12 are grossly intact. DIAGNOSTIC STUDIES: Chemistry showed sodium 139, potassium 4.3, chloride 105, CO2 of 16, BUN 75, creatinine 6.76, glucose 115, calcium 6.1, total bilirubin 0.3, AST 207, ALT 91, alkaline phosphatase 70, total protein 5.2, and albumin 2.5. CPK is 31,374. Of note, yesterday, chemistry showed sodium 135, potassium 4.0, chloride 106, CO2 of 16, BUN 69, and creatinine 6.21. On presentation, however, BUN was 79 and creatinine was 8.66. ASSESSMENT: 1. Acute renal failure: Due to hemodynamic factors related to intractable nausea, vomiting/dehydration as well as pigment-induced nephropathy. Mild increase in BUN and creatinine related to yesterday's figures is due to use of diuretics. 2. Metabolic acidosis. 3. Hypocalcemia. 4. Rhabdomyolysis. CPK is trending downward as suspected. 5. Transaminitis: Due to rhabdomyolysis. 6. Volume overload: Due to myalgia and inflammation as well as overt fluid overload. The patient is positive in I and O. PLAN: 1. We will continue IV fluid therapy. We will, however, decrease rate to 200 mL/h. 2. We will continue diuretic therapy with Lasix infusion to improve urine output. 3. We will also provide IV calcium supplementation. 4. We will continue to monitor electrolyte and renal function as well as intake and output and CPK. Further treatment to follow depending on hospital course. Care plan was discussed with the patient and mother at the bedside and they verbalized understanding. Job ID: [id number]
--- NOTE | 2020-04-12 15:31 | PDOC.HOSPP ---
- Subjective Encounter Date: 04/12/20 Encounter Time: 10:20 Subjective: feels slightly better, ck and LFTs trending down. explained reg.. slowely tapering antidepressants and follow with Mental health provider in the very near future. - Objective Vital Signs & Weight: Vital Signs (12 hours) Temp Pulse Pulse Pulse Resp BP BP 04/12/20 12:23 97.9 F 114 H 18 04/12/20 10:54 107 H 107 H 119/75 116/75 04/12/20 08:48 98.4 F 89 16 04/12/20 08:40 112 H 16 04/12/20 07:55 111 H 16 04/12/20 03:39 98.6 F 119 H 18 BP BP Pulse Ox 04/12/20 12:23 122/78 99 04/12/20 10:54 04/12/20 08:48 117/75 97 04/12/20 08:40 116/82 04/12/20 07:55 109/72 97 04/12/20 03:39 120/76 95 Weight Admit Weight 157 lb 8 oz Weight 168 lb 1.6 oz I&O: 04/11/20 04/12/20 04/13/20 06:59 06:59 06:59 Intake Total 5410 5445 Output Total 750 1425 Balance 4660 4020 Result Diagrams: 04/10/20 04:15 04/12/20 03:50 Hospitalist ROS - Medication Medications: Active Medications Generic Name Dose Route Start Last Admin Trade Name Freq PRN Reason Stop Dose Admin Acetaminophen 650 mg 04/09/20 15:38 04/12/20 12:22 Tylenol PO 650 mg Q4H PRN Administration Headache/Fever/Mild Pain (1-3) Diazepam 2 mg 04/11/20 21:00 04/12/20 09:18 Valium PO 2 mg BID AB Administration Ergocalciferol 1.25 mg 04/11/20 09:00 04/11/20 09:08 Drisdol PO 1.25 mg Q7DAYS AB Administration Heparin Sodium (Porcine) 5,000 units 04/11/20 21:00 04/12/20 09:18 Heparin SC 5,000 units BID AB Administration Furosemide 100 mg/ Sodium 100 mls @ 5 mls/hr 04/12/20 08:30 04/12/20 09:31 Chloride IVPB 100 mls INF AB Administration 5 MG/HR Sodium Chloride 1,000 mls @ 150 mls/hr 04/12/20 09:28 04/12/20 12:21 Normal Saline 0.9% IV 1,000 mls .Q6H40M AB Administration Ondansetron HCl 4 mg 04/10/20 13:47 04/12/20 09:27 Zofran SLOW IVP 4 mg Q4H PRN Administration Nausea/Vomiting Sodium Bicarbonate 650 mg 04/10/20 09:00 04/12/20 14:23 Bicarbonate, Sodium PO 650 mg TID AB Administration Sodium Chloride 10 ml 04/10/20 21:00 04/12/20 09:19 Flush - Normal Saline IVF 10 ml Q12HR AB Administration - Exam General Appearance: NAD, awake alert, ill appearing Eye: PERRL ENT: normocephalic atraumatic Neck: supple Heart: RRR Respiratory: CTAB, normal chest expansion Gastrointestinal: soft, normal bowel sounds Neurological: no focal deficits Psychiatric: A&O x 3 Hosp A/P - Plan Severe Dehdyratoin LAYNE Rhabdomyolysis --..myalgia given LAYNE and CP of >40K. --Cr coming down. --US neg for DVT. --cw aggressive hydration fw on UA for hemoglobinuria --cycle ck level leukocvytosis -resolved Hyopcalcemia --replace Transaminitis - will get stat one -acute hep panel neg. Vit D def'y///TSH nl -started on supplement Abn troponin without cp -Likely part of rhabdo adn LAYNE -however, consider card consult as CKMB also high at 157. GPC bacteremia -appears contaminant -he.e will start one dose of renally dosed vanc and repeat margot --if neg., will dc vanc., talk to DR. Flannery on this, given severe RF. 3rd fw on knee xray and doppler of L.leg cw aggressive hydration -appreciate cardiol and renal input. -reducing the doses of seroquel and valium, instead of abruptly stopping it -both pt and spouse updated on this matter. 4th explained reg.. slowely tapering antidepressants and follow with Mental health provider in the very near future. cw current mgmt -labs are improving - clinically she is getting better. -LFTs serial and CKs ordered.
[2020-04-12] MEDS ORDERED: Metoprolol Tartrate 25 MG TAB PO SCH ×2 (21:00)
[2020-04-13] MEDS: Acetaminophen 325 MG TAB PO PRN ×5 (01:47→21:30)
[2020-04-13] MEDS: Furosemide 100 MG in Sodium Chloride 0.9% 90 ML IVPB SCH ×2 (01:47→18:25)
[2020-04-13] MEDS: Sodium Chloride 0.9% 1,000 ML IV SCH ×3 (01:47→17:27)
[2020-04-13 04:42] LABS: Hemoglobin 9.1 g/dL (12.0-16.0); Mean Corpuscular HGB CONC 34.6 g/dL (32.0-36.0); Mean Corpuscular Hemoglobin 32.5 pg (27.0-31.0); Mean Corpuscular Volume 93.9 fL (78.0-98.0); Mean Platelet Volume 6.9 fL (7.4-10.4); Platelet Count 294 thou/uL (130-400); RBC Distribution Width 12.2 % (11.5-14.5); Red Blood Cell (RBC) Count 2.79 mill/uL (4.20-5.40); White Blood Cell (WBC) Count 6.4 thou/uL (4.8-10.8)
[2020-04-13 05:08] LABS: ALT (SGPT) 68 U/L (8-55); AST (SGOT) 130 U/L (5-34); Albumin 2.4 g/dL (3.5-5.0); Alkaline Phosphatase 67 U/L (40-110); Anion Gap 16 mmol/L (10-20); BUN (Urea Nitrogen) 72 mg/dL (7.0-18.7); Bilirubin, Total 0.2 mg/dL (0.2-1.2); Calc. Creatinine Clearance 13 mL/min (70-130); Calcium 6.3 mg/dL (7.8-10.44); Carbon Dioxide 24 mmol/L (22-29); Chloride 102 mmol/L (98-107); Estimated GFR-MDRD 7; Globulin 2.5 g/dL (2.4-3.5); Glucose 112 mg/dL (70-105); Potassium 3.9 mmol/L (3.5-5.1); Protein, Total 4.9 g/dL (6.0-8.3); Sodium 138 mmol/L (136-145)
[2020-04-13 05:40] LABS: CK (CPK) 18995 U/L (29-168)
[2020-04-13] MEDS: Heparin 5,000 UNITS/ML VIAL SC SCH ×2 (08:02→20:42)
[2020-04-13] MEDS: Ondansetron PF 4 MG/2 ML Vial SLOW IVP PRN ×4 (08:03→21:30)
[2020-04-13] MEDS: Diazepam 2 MG TAB PO SCH ×2 (08:03→21:31)
[2020-04-13] MEDS: Sodium Bicarbonate Tab 325 MG TAB PO SCH ×3 (08:03→21:30)
--- NOTE | 2020-04-13 08:48 | PRG ---
DATE OF SERVICE: 04/13/2020 SUBJECTIVE: Ms. Hanley feels somewhat better today. Her appetite slightly improved. Her muscle is still very sore, but they slightly improved. OBJECTIVE: VITAL SIGNS: Her blood pressure 120/75, pulse is between 100 to 110 and sinus tachycardia. LUNGS: Clear. CARDIAC: Tachycardiac for rest, but improved. ABDOMEN: Soft and nontender. EXTREMITIES: There is moderate edema. LABORATORY DATA: Of note, the CPK is now below 19,000, previously it was over 40,000, seems to be gradually improving. Her creatinine is 6.98, really not much change there, but unfortunately her urine output improved and she put out 1800 mL yesterday. ASSESSMENT: 1. Rhabdomyolysis. 2. Renal failure, slowly improving. 3. Sinus tachycardia. 4. History of hypertension. PLAN: 1. She has been placed back on metoprolol, she is on 100 mg a day at home. We will put her on 50 here to try to keep the heart rate below 120. 2. Continue intravenous fluid. We will reduce normal saline to 100 mL/h. As per Dr. Flannery's note, also on sodium bicarb with fluid. We will sign off. Please re-consult if needed. My partners will be available this weekend if needed. Job ID: [id number] MTDD
[2020-04-13 09:42] LABS: ALT (SGPT) 61 U/L (8-55); AST (SGOT) 115 U/L (5-34); Albumin 2.3 g/dL (3.5-5.0); Alkaline Phosphatase 68 U/L (40-110); Bilirubin, Direct 0.1 mg/dL (0.1-0.3); Bilirubin, Total 0.2 mg/dL (0.2-1.2); Protein, Total 4.7 g/dL (6.0-8.3)
[2020-04-13] MEDS ORDERED: Metolazone 5 MG TAB PO SCH (11:15)
[2020-04-13] MEDS: Albumin 25% 25 GM/100 ML BOT IVPB SCH ×2 (11:57→18:25)
--- NOTE | 2020-04-13 13:10 | PDOC.HOSPP ---
- Subjective Encounter Date: 04/13/20 Encounter Time: 09:40 Subjective: pt feels ok but still pain - body ache. ck levels improving. Siinus tachy., normotensive. xray of left knee unremark., doppler of the left leg neg..for DVT. - Objective Vital Signs & Weight: Vital Signs (12 hours) Temp Pulse Resp BP Pulse Ox 04/13/20 12:10 98.1 F 98 18 122/84 98 04/13/20 07:15 97.7 F 115 H 18 120/75 94 L 04/13/20 03:45 97.6 F 99 18 116/80 96 Weight Admit Weight 157 lb 8 oz Weight 168 lb 1.6 oz I&O: 04/12/20 04/13/20 04/14/20 06:59 06:59 06:59 Intake Total 5445 4209 Output Total 1425 1800 Balance 4020 2409 Result Diagrams: 04/13/20 04:32 04/13/20 04:32 Hospitalist ROS - Medication Medications: Active Medications Generic Name Dose Route Start Last Admin Trade Name Freq PRN Reason Stop Dose Admin Acetaminophen 650 mg 04/09/20 15:38 04/13/20 11:56 Tylenol PO 650 mg Q4H PRN Administration Headache/Fever/Mild Pain (1-3) Albumin Human 25 gm 04/13/20 11:15 04/13/20 11:57 Albumin 25% IVPB 04/14/20 11:16 25 gm Q8H AB Administration Diazepam 2 mg 04/11/20 21:00 04/13/20 08:03 Valium PO 2 mg BID AB Administration Ergocalciferol 1.25 mg 04/11/20 09:00 04/11/20 09:08 Drisdol PO 1.25 mg Q7DAYS AB Administration Heparin Sodium (Porcine) 5,000 units 04/11/20 21:00 04/13/20 08:02 Heparin SC 5,000 units BID AB Administration Furosemide 100 mg/ Sodium 100 mls @ 5 mls/hr 04/12/20 08:30 04/13/20 01:47 Chloride IVPB 100 mls INF AB Administration 5 MG/HR Sodium Chloride 1,000 mls @ 100 mls/hr 04/13/20 09:28 04/13/20 08:42 Normal Saline 0.9% IV Not Given .Q10H AB Metoprolol Succinate 50 mg 04/13/20 09:00 04/13/20 08:03 Toprol Xl PO 50 mg DAILY AB Administration Ondansetron HCl 4 mg 04/10/20 13:47 04/13/20 12:09 Zofran SLOW IVP 4 mg Q4H PRN Administration Nausea/Vomiting Quetiapine Fumarate 50 mg 04/12/20 21:00 04/12/20 21:28 Seroquel PO 50 mg HS AB Administration Senna/Docusate Sodium 2 tab 04/09/20 15:38 04/13/20 12:08 Senokot S PO 2 tab BID PRN Administration Constipation Sodium Bicarbonate 650 mg 04/10/20 09:00 04/13/20 08:03 Bicarbonate, Sodium PO 650 mg TID AB Administration Sodium Chloride 10 ml 04/10/20 21:00 04/13/20 08:03 Flush - Normal Saline IVF 10 ml Q12HR AB Administration - Exam General Appearance: NAD, awake alert Eye: PERRL ENT: normocephalic atraumatic Neck: supple Heart: RRR Heart - other findings: tachycardia Respiratory: normal chest expansion, no tachypnea Gastrointestinal: normal bowel sounds Extremities: 1+ LE edema Extremities - other findings: left leg > R and left knee swollen Neurological: no focal deficits Psychiatric: A&O x 3 Hosp A/P - Plan Severe Dehdyratoin LAYNE Rhabdomyolysis --..myalgia given LAYNE and CP of >40K. --Cr coming down. --US neg for DVT. --cw aggressive hydration, IV lasix and bicarb. fw on UA for hemoglobinuria --cycle ck level leukocvytosis -resolved Hyopcalcemia --replaced Transaminitis Vit D def'y///TSH nl -started on supplement Abn troponin without cp -Likely part of rhabdo and LAYNE -cardiology followed briefly and s/o GPC bacteremia -appears contaminant------------> repeat bl margot neg x 48hrs -he.e will start one dose of renally dosed vanc and repeat margot --if neg., will dc vanc., talked to DR. Flannery on this, given severe RF. -off abx. left leg > R--in swelling knee xray --capsular distenetin, soft tissue swelling ; no ossenous abnormality. and doppler of L.leg--neg for DVT -reducing the doses of seroquel and valium, instead of abruptly stopping it -both pt and spouse updated on this matter. -LFTs serial and CKs ordered. Dr. Flannery following with us.
--- NOTE | 2020-04-13 13:41 | PRG ---
DATE OF SERVICE: 04/13/2020 SERVICE: Nephrology. SUBJECTIVE: A 39-year-old female, seen in followup for acute renal failure and rhabdomyolysis. The patient is still having difficulty moving left lower extremity. Edema persists with poor urine output. Otherwise, the patient reports feeling better with improving appetite. Still complaining of some nausea and vomiting. Denied fever or change in bowel habit. OBJECTIVE: VITAL SIGNS: Temperature 97.7, pulse 98, respiratory rate 18, SpO2 of 94% on room air, and blood pressure is 120/75. I and O in the last 24 hours showed total intake of 4209 with total output of 1800. GENERAL: Female, in no obvious distress. Afebrile. Anicteric. Acyanotic. HEENT: Normocephalic, atraumatic. Oral mucosa is moist. CARDIOVASCULAR: Regular rhythm and rate with normal heart sounds 1 and 2. RESPIRATORY: Fair air entry bilaterally with a few transmitted breath sounds, but no obvious rhonchi or use of accessory muscles. GI: Full, soft, nontender, nondistended with normal bowel sounds. UROGENITAL: Norwood catheter is in place draining urine. EXTREMITIES: Lbhjavwn-cm-zhhonq left lower extremity edema. Mmyfo-pg-uset edema of other extremities noted. MANAGER PACKAGING: Conscious, alert, oriented x3 with appropriate mental status. Cranial nerves 2 through 12 are grossly intact. DIAGNOSTIC DATA: CBC today showed WBC count of 6.4, hemoglobin of 9.1, and platelets of 294. Chemistry showed sodium 138, potassium 3.9, chloride 102, CO2 of 24, BUN 72, creatinine 6.98, glucose 112, calcium 6.3, total bilirubin 0.2, AST 130, ALT 68, alkaline phosphatase 67, total protein 4.9, albumin 2.4, and globulin 2.5. CPK is down to 18,995 from peak of more than 40,000. ASSESSMENT: 1. Acute renal failure: Due to rhabdomyolysis and volume depletion. 2. Metabolic acidosis due to acute kidney injury. 3. Rhabdomyolysis. 4. 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 5. Volume overload. 6. Hypoalbuminemia. PLAN: 1. Continue crystalloid therapy, but at decreased rate. 2. We will add albumin due to hypoalbuminemia to help mobilize third space fluids. 3. We will continue Lasix infusion. 4. We will add metolazone to help diuresis. 5. We will continue alkali therapy with oral sodium bicarbonate. 6. PT/OT to continue. 7. We will monitor intake and output. There is still no obvious indication for hemodialysis at this point as electrolytes are acceptable and there is no respiratory distress. Further treatment to follow depending on hospital course. Care plan was discussed with the patient and spouse at the bedside. Job ID: [id number]
[2020-04-14] MEDS: Albumin 25% 25 GM/100 ML BOT IVPB SCH ×4 (02:48→22:18)
[2020-04-14] MEDS: Sodium Chloride 0.9% 1,000 ML IV SCH (02:55)
[2020-04-14] MEDS: Acetaminophen 325 MG TAB PO PRN ×5 (04:14→20:04)
[2020-04-14] MEDS: Ondansetron PF 4 MG/2 ML Vial SLOW IVP PRN ×5 (04:35→20:04)
[2020-04-14 04:37] LABS: Anion Gap 20 mmol/L (10-20); BUN (Urea Nitrogen) 77 mg/dL (7.0-18.7); Calc. Creatinine Clearance 13 mL/min (70-130); Calcium 6.3 mg/dL (7.8-10.44); Carbon Dioxide 20 mmol/L (22-29); Chloride 103 mmol/L (98-107); Estimated GFR-MDRD 6; Glucose 87 mg/dL (70-105); Sodium 139 mmol/L (136-145)
[2020-04-14 05:06] LABS: CK (CPK) 10966 U/L (29-168)
[2020-04-14] MEDS: Heparin 5,000 UNITS/ML VIAL SC SCH ×2 (08:00→20:03)
[2020-04-14] MEDS: Sodium Bicarbonate Tab 325 MG TAB PO SCH ×3 (08:00→20:04)
[2020-04-14] MEDS: Diazepam 2 MG TAB PO SCH ×2 (08:00→20:03)
[2020-04-14 09:58] LABS: ALT (SGPT) 46 U/L (8-55); AST (SGOT) 91 U/L (5-34); Albumin 2.8 g/dL (3.5-5.0); Alkaline Phosphatase 61 U/L (40-110); Bilirubin, Direct 0.1 mg/dL (0.1-0.3); Bilirubin, Total 0.2 mg/dL (0.2-1.2); Protein, Total 5.2 g/dL (6.0-8.3)
[2020-04-14] MEDS ORDERED: Metolazone 5 MG TAB PO SCH (10:45)
--- NOTE | 2020-04-14 14:09 | EKG ---
Test Reason : Blood Pressure : / mmHG Vent. Rate : 121 BPM Atrial Rate : 121 BPM P-R Int : 134 ms QRS Dur : 068 ms QT Int : 342 ms P-R-T Axes : 043 050 048 degrees QTc Int : 485 ms Sinus tachycardia Otherwise normal ECG Confirmed by LIAN FINN DO [id number]), legal editor LIAM DE LA O ([id number] on 04/14/2020 2:09:11 PM Referred By: Confirmed By:LIAN FINN DO
[2020-04-14] MEDS: Furosemide 100 MG in Sodium Chloride 0.9% 90 ML IVPB SCH (14:45)
--- NOTE | 2020-04-14 14:54 | PRG ---
DATE OF SERVICE: 04/14/2020 SERVICE: Nephrology. SUBJECTIVE: A 39-year-old female seen in followup for acute renal failure. The patient continued to complain of generalized swelling as well as left lower extremity weakness. She also complains of some nausea and intermittent vomiting. Denied fever, dizziness, dysuria, or change in bowel habit. OBJECTIVE: VITAL SIGNS: Temperature 98.1, pulse 98, respiratory rate 18, SpO2 of 98% on room air, and blood pressure is 121/81. I and O in the last 24 hours showed total intake of 4200 with total output of 1975. GENERAL: Obese young female, in no obvious distress. Afebrile. Anicteric. Acyanotic. HEENT: Normocephalic and atraumatic. Oral mucosa is moist. CARDIOVASCULAR: Regular rhythm and rate with normal heart sounds 1 and 2. RESPIRATORY: Fair air entry bilaterally with no obvious crackle or rhonchi or use of accessory muscles. GI: Full, soft, nontender, nondistended with normal bowel sounds. UROGENITAL: Norwood catheter is in place draining some urine. EXTREMITIES: Iarg-iv-etmiccxm edema of the extremities except left lower extremity with diffuse pczxvkaf-cq-dhiooj edema. No erythema appreciated. 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 Cranial nerves 2 through 12 are grossly intact. The patient moves all extremities except left lower extremity with significant decrease in power and range of motion. PSYCHIATRIC: Emotional lability. DIAGNOSTIC DATA: CBC today showed WBC count of 6.4, hemoglobin of 9.1, MCV of 93.9, and platelets of 294. Chemistry today showed sodium 139, potassium 4.0, chloride 103, CO2 of 20, BUN 77, creatinine 7.16, calcium 6.3, total bilirubin 0.2, AST 91, ALT 46, alkaline phosphatase 61, total protein 5.2, and albumin 2.8. CPK is down to 10,966 from peak of more than 40,000. ASSESSMENT: 1. Acute renal failure: Most likely acute tubular necrosis from rhabdomyolysis and severe dehydration. Creatinine and BUN are fairly stable despite aggressive diuretic therapy. Electrolytes are acceptable as well as acid-base balance. The patient is fluid overloaded, but there is no pulmonary congestion. There is no immediate need for hemodialysis at this time. 2. Volume overload: Due to aggressive diuretic therapy, muscle inflammation, as well as hypoalbuminemia. 3. Abnormal liver function tests: Due to rhabdomyolysis: Improved significantly. 4. Rhabdomyolysis with CPK more than 40,000. Improving with IV fluid therapy. 5. Left lower extremity edema and swelling as well as weakness. There was no trauma. Most likely related to muscle weakness related to rhabdomyolysis. 6. Hypocalcemia: Due to vitamin D deficiency. 7. Metabolic acidosis: Due to acute kidney injury and use of normal saline. 8. Anemia: Due to acute illness. 9. Hypoalbuminemia. PLAN: 1. We will discontinue normal saline. 2. We will, however, continue albumin therapy for further 24 hours. 3. We will continue aggressive diuretic therapy given fluid overload with Lasix infusion as well as metolazone. 4. We will continue to monitor electrolytes and renal function as well as intake and output. 5. We will continue calcium and vitamin D supplementation. 6. In view of the fact that there is no respiratory distress despite edema with acceptable electrolytes and acid-base balance, I have discussed care options including hemodialysis as well as conservative therapy with IV diuretics for volume management with the patient and mother at the bedside. They elected to continue with conservative management for now with the plan to re-evaluate on Thursday. 7. Further treatment to follow depending on hospital course. Job ID: [id number]
--- NOTE | 2020-04-14 22:31 | PDOC.HOSPP ---
- Subjective Encounter Date: 04/14/20 Encounter Time: 09:00 Subjective: no overnight events. this morning, reiterates lower back pain and left lower extremity pain and weakness that started suddently a week ago. - Objective Vital Signs & Weight: Vital Signs (12 hours) Temp Pulse Resp BP Pulse Ox 04/14/20 19:53 98.7 F 99 15 125/83 97 04/14/20 15:09 97.7 F 99 18 113/76 94 L 04/14/20 10:54 98.1 F 98 18 121/81 98 Weight Admit Weight 157 lb 8 oz Weight 168 lb 1.6 oz I&O: 04/13/20 04/14/20 04/15/20 06:59 06:59 06:59 Intake Total 4209 4200 1360 Output Total 1800 1975 1450 Balance 2409 2225 -90 Result Diagrams: 04/13/20 04:32 04/14/20 03:39 Hospitalist ROS - Review of Systems Constitutional: denies: fever, chills, sweats, weakness, malaise, other Respiratory: denies: cough, dry, shortness of breath, hemoptysis, SOB with excertion, pleuritic pain, sputum, wheezing, other Cardiovascular: denies: chest pain, palpitations, orthopnea, paroxysmal noc. dyspnea, edema, light headedness, other Gastrointestinal: reports: other (baseline one bowel movement per week) Genitourinary: reports: other (vee in place; denies incontinence prior to placement) Musculoskeletal: reports: back pain, leg pain - Medication Medications: Active Medications Generic Name Dose Route Start Last Admin Trade Name Hankq PRN Reason Stop Dose Admin Acetaminophen 650 mg 04/09/20 15:38 04/14/20 20:04 Tylenol PO 650 mg Q4H PRN Administration Headache/Fever/Mild Pain (1-3) Albumin Human 25 gm 04/14/20 14:00 04/14/20 22:18 Albumin 25% IVPB 04/15/20 06:01 25 gm 0600,1400,2200 AB Administration Diazepam 2 mg 04/11/20 21:00 04/14/20 20:03 Valium PO 2 mg BID AB Administration Ergocalciferol 1.25 mg 04/11/20 09:00 04/11/20 09:08 Drisdol PO 1.25 mg Q7DAYS AB Administration Heparin Sodium (Porcine) 5,000 units 04/11/20 21:00 04/14/20 20:03 Heparin SC 5,000 units BID AB Administration Furosemide 100 mg/ Sodium 100 mls @ 5 mls/hr 04/12/20 08:30 04/14/20 14:45 Chloride IVPB 100 mls INF AB Administration 5 MG/HR Metoprolol Succinate 50 mg 04/13/20 09:00 04/14/20 08:00 Toprol Xl PO 50 mg DAILY AB Administration Ondansetron HCl 4 mg 04/10/20 13:47 04/14/20 20:04 Zofran SLOW IVP 4 mg Q4H PRN Administration Nausea/Vomiting Quetiapine Fumarate 50 mg 04/12/20 21:00 04/14/20 20:04 Seroquel PO 50 mg HS AB Administration Senna/Docusate Sodium 2 tab 04/09/20 15:38 04/13/20 12:08 Senokot S PO 2 tab BID PRN Administration Constipation Sodium Bicarbonate 650 mg 04/10/20 09:00 04/14/20 20:04 Bicarbonate, Sodium PO 650 mg TID AB Administration Sodium Chloride 10 ml 04/10/20 21:00 04/14/20 20:04 Flush - Normal Saline IVF 10 ml Q12HR AB Administration - Exam General Appearance: NAD, awake alert Heart: no murmur, no gallops, no rubs Heart - other findings: sinus tachy base on telemetry Respiratory: CTAB, no wheezes, no rales, no ronchi Gastrointestinal: soft, non-tender, non-distended, normal bowel sounds Extremities - other findings: LLE > RLE pitting edema to knee level Musculoskeletal - other findings: no muslce tenderness Psychiatric: A&O x 3 Psychiatric - other findings: labile mood Hosp A/P - Plan #rhabdomyolsysi #ATN -per nephrology, continue diuresis; no HD at this point after conversing with patient #LLE weakness, pain -likely related to rhabdo -if doesnt improve with resolution of rhabdo, will take lumbar xray #staph hominis bacteremia -BCx positive less than 24 hours apart; repeat BCx negative -continue ABx for total of 5 days
[2020-04-14] MEDS ORDERED: Senokot S 8.6-50 MG TAB PO SCH ×2 (22:45)
[2020-04-15 04:46] LABS: Anion Gap 22 mmol/L (10-20); BUN (Urea Nitrogen) 78 mg/dL (7.0-18.7); Calc. Creatinine Clearance 13 mL/min (70-130); Calcium 7.3 mg/dL (7.8-10.44); Carbon Dioxide 20 mmol/L (22-29); Chloride 102 mmol/L (98-107); Estimated GFR-MDRD 6; Glucose 89 mg/dL (70-105); Potassium 3.9 mmol/L (3.5-5.1); Sodium 140 mmol/L (136-145)
[2020-04-15 04:52] LABS: CK (CPK) 6586 U/L (29-168)
[2020-04-15] MEDS: Albumin 25% 25 GM/100 ML BOT IVPB SCH (05:04)
[2020-04-15] MEDS: Polyethylene Glycol 3350 17 GM Packet PO SCH (08:53)
[2020-04-15] MEDS: Diazepam 2 MG TAB PO SCH ×2 (08:53→20:15)
[2020-04-15] MEDS: Senokot S 8.6-50 MG TAB PO SCH ×2 (08:53→20:15)
[2020-04-15] MEDS: Sodium Bicarbonate Tab 325 MG TAB PO SCH ×3 (08:54→20:15)
[2020-04-15] MEDS: Heparin 5,000 UNITS/ML VIAL SC SCH ×2 (08:54→20:15)
[2020-04-15] MEDS: Ondansetron PF 4 MG/2 ML Vial SLOW IVP PRN ×2 (09:00→17:47)
[2020-04-15 09:08] LABS: Albumin 3.5 g/dL (3.5-5.0)
[2020-04-15 09:11] LABS: Protein, Total 5.5 g/dL (6.0-8.3)
[2020-04-15 09:13] LABS: Alkaline Phosphatase 47 U/L (40-110); Bilirubin, Total 0.3 mg/dL (0.2-1.2)
[2020-04-15 09:16] LABS: AST (SGOT) 80 U/L (5-34); Bilirubin, Direct 0.1 mg/dL (0.1-0.3)
[2020-04-15 09:17] LABS: ALT (SGPT) 38 U/L (8-55)
[2020-04-15] MEDS: Acetaminophen 325 MG TAB PO PRN ×3 (11:33→19:22)
--- NOTE | 2020-04-15 12:46 | PRG ---
DATE OF SERVICE: 04/15/2020 SERVICE: Nephrology. SUBJECTIVE: A 39-year-old female seen in followup for acute renal failure and volume overload. The patient continued to complain of left lower extremity weakness. She, however, was able to transfer. Nausea has improved, and the patient was able to keep some food down. Denied shortness of breath or headache. OBJECTIVE: VITAL SIGNS: Temperature 98.7, pulse 94, respiratory rate 17, SpO2 of 95% on room air, and blood pressure is 121/82. I and O in the last 24 hours showed total intake of 1710 with total output of . GENERAL: Obese female, in no obvious distress. Afebrile. Anicteric. Acyanotic. HEENT: Normocephalic and atraumatic. Oral mucosa is moist. CARDIOVASCULAR: Regular rhythm and rate. Normal heart sounds 1 and 2. RESPIRATORY: Fair air entry bilaterally with no obvious crackle or rhonchi or use of accessory muscles. GI: Full, soft, nontender, nondistended with normal bowel sounds. UROGENITAL: [place] catheter is in place draining some urine. EXTREMITIES: [id number] edema of left lower extremity noted. Mild edema of other extremities appreciated. LOAN COUNSELOR: Conscious, alert and oriented x3 with appropriate mental status. Cranial nerves 2 through 12 are grossly intact. DIAGNOSTIC DATA: Renal function panel showed sodium 140, potassium 3.9, chloride 102, CO2 of 20, BUN 78, creatinine 7.41, calcium 7.3, total protein 5.5, and albumin 3.5. CPK is 6586. ASSESSMENT: 1. Acute renal failure: Due to ATN from rhabdomyolysis with possible contribution from severe dehydration. 2. Rhabdomyolysis. CPK is trending downward as expected. 3. Volume overload: Due to acute renal failure and aggressive IV fluid therapy. 4. Vitamin D deficiency, on supplementation. 5. Metabolic acidosis. 6. Left lower extremity weakness: Due to rhabdomyolysis and associated inflammation. PLAN: 1. We will continue diuretic therapy with IV Lasix. [place] oral intake advised. We will also continue sodium bicarbonate orally. 2. The patient advised to increase activity. 3. We will also continue calcium supplementation as well as vitamin D supplementation. 4. We will recheck renal function test in the morning as well as CPK. Further treatment to follow depending on hospital course. Job ID: [id number]
[2020-04-15] MEDS ORDERED: Bisacodyl 10 MG SUPP PR SCH (16:15)
[2020-04-15] MEDS: Furosemide 100 MG in Sodium Chloride 0.9% 90 ML IVPB SCH (18:27)
--- NOTE | 2020-04-15 20:10 | PDOC.HOSPP ---
- Subjective Encounter Date: 04/15/20 Encounter Time: 14:00 Subjective: no overnight events. this morning feeling better overall and able to ambulate with physical therapy. Pain improving as well, consistent with downtrending CK. - Objective Vital Signs & Weight: Vital Signs (12 hours) Temp Pulse Pulse Pulse Pulse Resp BP 04/15/20 19:33 98.4 F 102 H 16 04/15/20 15:26 98.7 F 96 18 04/15/20 13:55 101 H 99 130 H 138/88 04/15/20 11:29 98.4 F 94 17 04/15/20 10:35 04/15/20 08:49 98.7 F 109 H 17 BP BP Pulse Ox 04/15/20 19:33 138/80 98 04/15/20 15:26 132/85 98 04/15/20 13:55 129/90 04/15/20 11:29 134/91 H 98 04/15/20 10:35 95 04/15/20 08:49 121/82 95 Weight Admit Weight 157 lb 8 oz Weight 185 lb 12.8 oz I&O: 04/14/20 04/15/20 04/16/20 06:59 06:59 06:59 Intake Total 4200 1710 650 Output Total 1975 3250 2050 Balance 2225 -1540 -1400 Result Diagrams: 04/13/20 04:32 04/15/20 03:37 Hospitalist ROS - Review of Systems Constitutional: denies: fever, chills, sweats, weakness, malaise, other Respiratory: denies: cough, dry, shortness of breath, hemoptysis, SOB with excertion, pleuritic pain, sputum, wheezing, other Cardiovascular: denies: chest pain, palpitations, orthopnea, paroxysmal noc. dyspnea, edema, light headedness, other Gastrointestinal: denies: nausea, vomiting, abdominal pain, diarrhea, constipation, melena, hematochezia, other Neurological: reports: weakness (improving) - Medication Medications: Active Medications Generic Name Dose Route Start Last Admin Trade Name Freq PRN Reason Stop Dose Admin Acetaminophen 650 mg 04/09/20 15:38 04/15/20 19:22 Tylenol PO 650 mg Q4H PRN Administration Headache/Fever/Mild Pain (1-3) Diazepam 2 mg 04/11/20 21:00 04/15/20 08:53 Valium PO 2 mg BID AB Administration Ergocalciferol 1.25 mg 04/11/20 09:00 04/11/20 09:08 Drisdol PO 1.25 mg Q7DAYS AB Administration Heparin Sodium (Porcine) 5,000 units 04/11/20 21:00 04/15/20 08:54 Heparin SC 5,000 units BID AB Administration Furosemide 100 mg/ Sodium 100 mls @ 5 mls/hr 04/12/20 08:30 04/15/20 18:27 Chloride IVPB 100 mls INF AB Administration 5 MG/HR Metoprolol Succinate 50 mg 04/13/20 09:00 04/15/20 08:53 Toprol Xl PO 50 mg DAILY AB Administration Ondansetron HCl 4 mg 04/10/20 13:47 04/15/20 17:47 Zofran SLOW IVP 4 mg Q4H PRN Administration Nausea/Vomiting Polyethylene Glycol 17 gm 04/15/20 09:00 04/15/20 08:53 Miralax PO 17 gm DAILY AB Administration Quetiapine Fumarate 50 mg 04/12/20 21:00 04/14/20 20:04 Seroquel PO 50 mg HS AB Administration Senna/Docusate Sodium 2 tab 04/15/20 09:00 04/15/20 08:53 Senokot S PO 2 tab BID AB Administration Sodium Bicarbonate 650 mg 04/10/20 09:00 04/15/20 15:30 Bicarbonate, Sodium PO 650 mg TID AB Administration Sodium Chloride 10 ml 04/10/20 21:00 04/15/20 08:54 Flush - Normal Saline IVF 10 ml Q12HR AB Administration - Exam General Appearance: NAD, awake alert Heart: RRR, no murmur, no gallops, no rubs Respiratory: CTAB, no wheezes, no rales, no ronchi Gastrointestinal: soft, non-tender, non-distended, normal bowel sounds Extremities: 2+ LE edema Extremities - other findings: to knee level, L>R Musculoskeletal - other findings: unchanged LLE weakness Psychiatric: normal affect, normal behavior, A&O x 3 Hosp A/P - Plan #rhabdomyolysis #ATN -per nephrology, continue diuresis; no HD at this point after conversing with patient #LLE weakness, pain -likely related to rhabdo -improvement in pain, able to ambulate with assistance (6/) #staph hominis bacteremia -BCx positive less than 24 hours apart; repeat BCx negative -completed ABx treatment
[2020-04-16] MEDS: Acetaminophen 325 MG TAB PO PRN ×4 (02:56→21:43)
[2020-04-16 07:27] LABS: Hemoglobin 9.8 g/dL (12.0-16.0); Mean Corpuscular HGB CONC 34.7 g/dL (32.0-36.0); Mean Corpuscular Hemoglobin 32.4 pg (27.0-31.0); Mean Corpuscular Volume 93.2 fL (78.0-98.0); Mean Platelet Volume 6.3 fL (7.4-10.4); Platelet Count 356 thou/uL (130-400); RBC Distribution Width 12.1 % (11.5-14.5); Red Blood Cell (RBC) Count 3.03 mill/uL (4.20-5.40); White Blood Cell (WBC) Count 5.1 thou/uL (4.8-10.8)
[2020-04-16 07:37] LABS: ALT (SGPT) 49 U/L (8-55); AST (SGOT) 93 U/L (5-34); Albumin 3.7 g/dL (3.5-5.0); Alkaline Phosphatase 57 U/L (40-110); Anion Gap 21 mmol/L (10-20); BUN (Urea Nitrogen) 82 mg/dL (7.0-18.7); Bilirubin, Total 0.3 mg/dL (0.2-1.2); Calc. Creatinine Clearance 12 mL/min (70-130); Calcium 8.2 mg/dL (7.8-10.44); Carbon Dioxide 26 mmol/L (22-29); Chloride 97 mmol/L (98-107); Estimated GFR-MDRD 6; Glucose 99 mg/dL (70-105); Potassium 3.7 mmol/L (3.5-5.1); Protein, Total 5.7 g/dL (6.0-8.3); Sodium 140 mmol/L (136-145)
[2020-04-16 07:50] LABS: CK (CPK) 5748 U/L (29-168)
[2020-04-16] MEDS: Sodium Bicarbonate Tab 325 MG TAB PO SCH ×3 (08:16→21:41)
[2020-04-16] MEDS: Senokot S 8.6-50 MG TAB PO SCH ×2 (08:16→21:43)
[2020-04-16] MEDS: Heparin 5,000 UNITS/ML VIAL SC SCH ×2 (08:16→21:43)
[2020-04-16] MEDS: Polyethylene Glycol 3350 17 GM Packet PO SCH (08:16)
--- NOTE | 2020-04-16 11:12 | PQF ---
BEVERLY COBOS, TIMOTHY [id number] [facility]-288 [id number] CLINICAL DOCUMENTATION IMPROVEMENT CLARIFICATION FORM: ICD-10 Updated PLEASE DO AN ADDENDUM TO THE PROGRESS NOTE WITH ANY DOCUMENTATION UPDATES OR ADDITIONS AND CARRY THROUGH TO DC SUMMARY. THANK YOU. DATE: 04/16/2020 ATTN:DR. Raulito GEORGE Please exercise your independent, professional judgment in responding to the clarification form. Clinical indicators are provided on the bottom of this form for your review. Please check appropriate box(s): [ ] Associated Diagnosis: [ ] Other diagnosis [ x ] Unable to determine In addition, please specify: Present on Admission (POA): [ ] Yes [ ] No [ ] Unable to determine For continuity of documentation, please document condition throughout progress notes and discharge summary. Thank You. CLINICAL INDICATORS - SIGNS / SYMPTOMS/ LABS are present in the medical record: 04/09 TROPONIN I 0.137 > 0.090 > 0.113 > 0.073 04/10 TROPONIN I 0.074 04/09 H&P ( GURUSAMY) IMPRESSION AND PLAN: 4). ABNORMAL TROPONIN PROBABLY REFLECTIVE OF ACUTE KIDNEY DYSFUNCTION. PT DENIES ANY ALBERTINA CHEST PAIN. METABOLIC MISMATCH AND TYPE II DEMAND ISCHEMIA. RISK: DX SEVERE DEHYDRATION, ATN, ACUTE RENAL FAILURE., HX HTN ( PN/OBI) 04/15) TREATMENTS: SERIAL TROPONIN I ( 04/09) CARDIOLOGY CONSULT ( JOSE/04/10) THANK YOU ! ROBERTO (This form is maintained as a part of the permanent medical record) 2014 [email or web address] All Rights Reserved ARIANNA [email or web address] Cell [facility]
[2020-04-16] MEDS: Ondansetron PF 4 MG/2 ML Vial SLOW IVP PRN (11:34)
[2020-04-16] MEDS: Diazepam 2 MG TAB PO SCH ×2 (11:35→21:40)
[2020-04-16] MEDS: Sodium Chloride 0.9% 1,000 ML IV SCH ×2 (11:35→21:39)
[2020-04-16] MEDS ORDERED: Albumin 25% 25 GM/100 ML BOT IVPB SCH (12:15)
--- NOTE | 2020-04-16 12:18 | PDOC.HOSPP ---
- Subjective Encounter Date: 04/16/20 Encounter Time: 07:00 Subjective: no overnight events. This morning, sitting comfortably in chair and endorses feeling stronger including in left lower extremity. Complains of mild nausea but otherwise no complaints. - Objective Vital Signs & Weight: Vital Signs (12 hours) Temp Pulse Resp BP Pulse Ox 04/16/20 08:00 96.8 F L 105 H 18 119/87 94 L 04/16/20 03:51 98.8 F 99 20 133/95 H 97 Weight Admit Weight 157 lb 8 oz Weight 177 lb 6.4 oz I&O: 04/15/20 04/16/20 04/17/20 06:59 06:59 06:59 Intake Total 1710 1188.8 Output Total 1290 4275 Balance -1540 -3086.2 Result Diagrams: 04/16/20 07:09 04/16/20 07:09 Hospitalist ROS - Review of Systems Constitutional: denies: fever, chills, sweats, weakness, malaise, other Respiratory: denies: cough, dry, shortness of breath, hemoptysis, SOB with excertion, pleuritic pain, sputum, wheezing, other Cardiovascular: denies: chest pain, palpitations, orthopnea, paroxysmal noc. dyspnea, edema, light headedness, other Gastrointestinal: denies: nausea, vomiting, abdominal pain, diarrhea, constipation, melena, hematochezia, other Neurological: reports: weakness (improving) - Medication Medications: Active Medications Generic Name Dose Route Start Last Admin Trade Name Freq PRN Reason Stop Dose Admin Acetaminophen 650 mg 04/09/20 15:38 04/16/20 07:31 Tylenol PO 650 mg Q4H PRN Administration Headache/Fever/Mild Pain (1-3) Diazepam 2 mg 04/11/20 21:00 04/16/20 11:35 Valium PO 2 mg BID AB Administration Ergocalciferol 1.25 mg 04/11/20 09:00 04/11/20 09:08 Drisdol PO 1.25 mg Q7DAYS AB Administration Heparin Sodium (Porcine) 5,000 units 04/11/20 21:00 04/16/20 08:16 Heparin SC 5,000 units BID AB Administration Furosemide 100 mg/ Sodium 100 mls @ 5 mls/hr 04/12/20 08:30 04/15/20 18:27 Chloride IVPB 100 mls INF AB Administration 5 MG/HR Sodium Chloride 1,000 mls @ 100 mls/hr 04/16/20 10:30 04/16/20 11:35 Normal Saline 0.9% IV 1,000 mls .Q10H AB Administration Metoprolol Succinate 50 mg 04/13/20 09:00 04/16/20 08:16 Toprol Xl PO 50 mg DAILY AB Administration Ondansetron HCl 4 mg 04/10/20 13:47 04/16/20 11:34 Zofran SLOW IVP 4 mg Q4H PRN Administration Nausea/Vomiting Polyethylene Glycol 17 gm 04/15/20 09:00 04/16/20 08:16 Miralax PO 17 gm DAILY AB Administration Quetiapine Fumarate 50 mg 04/12/20 21:00 04/15/20 20:15 Seroquel PO 50 mg HS AB Administration Senna/Docusate Sodium 2 tab 04/15/20 09:00 04/16/20 08:16 Senokot S PO 2 tab BID AB Administration Sodium Bicarbonate 650 mg 04/10/20 09:00 04/16/20 08:16 Bicarbonate, Sodium PO 650 mg TID AB Administration Sodium Chloride 10 ml 04/10/20 21:00 04/16/20 08:17 Flush - Normal Saline IVF 10 ml Q12HR AB Administration - Exam General Appearance: NAD, awake alert Eye: PERRL Heart: no murmur, no gallops Heart - other findings: tachcardic 90-100. sinus of tele Respiratory: CTAB, no wheezes, no rales, no ronchi Gastrointestinal: soft, non-tender, non-distended, normal bowel sounds Extremities: 2+ LE edema Extremities - other findings: unchanged Musculoskeletal - other findings: unchanged LLE strength Psychiatric: normal affect, normal behavior, A&O x 3 Hosp A/P - Plan #rhabdomyolysis #ATN -per nephrology, continue diuresis; no HD at this point after conversing with patient; requests to continue monitoring renal function and diuresis #LLE weakness, pain -likely related to rhabdo - able to ambulate with assistance (04/15) #staph hominis bacteremia -BCx positive less than 24 hours apart; repeat BCx negative -completed ABx treatment ELOS 2 midnights
--- NOTE | 2020-04-16 12:22 | PRG ---
DATE OF SERVICE: 04/16/2020 SERVICE: Nephrology. SUBJECTIVE: A 39-year-old female seen in followup for acute renal failure and rhabdomyolysis as well as volume overload. The patient reports feeling better, though continued to complain about nausea and poor appetite. She however denied vomiting. Had some bowel motions yesterday after Dulcolax. OBJECTIVE: VITAL SIGNS: Temperature 96.8, pulse 105, respiratory rate 18, SpO2 of 94% on room air, blood pressure is 119/87. I and O in the last 24 hours showed total intake of 1188 with total output of 4275. GENERAL: Comfortable female, in no distress. Afebrile. Anicteric. Acyanotic. HEENT: Normocephalic, atraumatic. Oral mucosa is moist. CARDIOVASCULAR: Regular rhythm and rate with normal heart sounds 1 and 2. RESPIRATORY: Fair air entry bilaterally with no obvious crackle or rhonchi or use of accessory muscles. GI: Full, soft, nontender, nondistended with normal bowel sounds. UROGENITAL: [place] catheter is in place draining some urine. EXTREMITIES: Moderate edema of the left lower extremity. Other extremities have trace to mild edema. No erythema appreciated. 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 Cranial nerves 2 through 12 are grossly intact. Power is reduced in left lower extremity. DIAGNOSTIC DATA: CBC showed WBC count of 5.1, hemoglobin of 9.8, platelet of 356. Chemistry showed sodium 140, potassium 3.7, chloride 97, CO2 of 26, BUN 82, creatinine 7.70, glucose 99, calcium 8.2, total bilirubin 0.3, AST 93, ALT 49, alkaline phosphatase 57, total protein 5.7, albumin 3.7. CPK is down to 5748. ASSESSMENT: 1. Acute renal failure: This is due to ATN related to severe dehydration and rhabdomyolysis. 2. Volume overload: Due to aggressive fluid therapy as well as third-spacing due to hypoalbuminemia. Urine output has markedly improved with diuretic therapy. The patient is negative 3 L in the last 24 hours and despite edema is showing some sign of intravascular contraction, given increase in BUN as well as alkalosis and some tachycardia. 3. Rhabdomyolysis. CPK is down to 5748 from more than 40,000. However, decrease from yesterday is not as expected, most likely due to diuresis. 4. Nausea and poor appetite: Most likely related to uremic syndrome. 5. Left lower extremity weakness. Association of this with back pain is now concerning due to persistence. Neurological damage is a concern as well as spondylosis. Though the patient denied any trauma, the chronic nature of this is concerning. Also, the patient had myalgia left lower extremity has marked swelling. Most likely this is from rhabdomyolysis, but ruling out lumbar spine pathology is prudent. PLAN: 1. We will restart normal saline at 100 mL/hr. 2. We will also give a bolus of albumin to help mobilize third-space fluid. 3. We will also continue diuretic therapy. 4. I discussed dialytic treatment with the patient and mother at the bedside. They understand that there is no urgent immediate need for dialysis, but due to persistence of nausea and poor appetite, which could be from uremia, I offered to start dialysis on the patient. The patient however elected to wait a little to see if there will be significant renal recovery. 5. [place] oral intake advised. 6. We will recheck renal function and electrolytes in the morning. Further treatment to follow depending on hospital course. Job ID: [id number]
[2020-04-16] MEDS: Furosemide 100 MG in Sodium Chloride 0.9% 90 ML IVPB SCH (17:39)
[2020-04-17] MEDS: Acetaminophen 325 MG TAB PO PRN ×4 (03:38→21:10)
[2020-04-17 04:37] LABS: ALT (SGPT) 51 U/L (8-55); AST (SGOT) 94 U/L (5-34); Albumin 3.8 g/dL (3.5-5.0); Alkaline Phosphatase 52 U/L (40-110); Anion Gap 20 mmol/L (10-20); BUN (Urea Nitrogen) 78 mg/dL (7.0-18.7); Bilirubin, Total 0.3 mg/dL (0.2-1.2); CK (CPK) 3711 U/L (29-168); Calc. Creatinine Clearance 14 mL/min (70-130); Calcium 8.1 mg/dL (7.8-10.44); Carbon Dioxide 27 mmol/L (22-29); Chloride 96 mmol/L (98-107); Estimated GFR-MDRD 7; Glucose 107 mg/dL (70-105); Potassium 3.4 mmol/L (3.5-5.1); Protein, Total 5.8 g/dL (6.0-8.3); Sodium 140 mmol/L (136-145)
[2020-04-17] MEDS ORDERED: Furosemide 100 MG in Sodium Chloride 0.9% 90 ML IVPB SCH ×2 (06:01→06:15)
[2020-04-17] MEDS: Sodium Chloride 0.9% 1,000 ML IV SCH ×2 (06:09→16:41)
[2020-04-17] MEDS: Diazepam 2 MG TAB PO SCH ×2 (08:41→21:10)
[2020-04-17] MEDS: Potassium Chloride 10 MEQ TAB PO SCH ×3 (08:41→21:10)
[2020-04-17] MEDS: Ondansetron PF 4 MG/2 ML Vial SLOW IVP PRN ×2 (08:41→16:33)
[2020-04-17] MEDS: Heparin 5,000 UNITS/ML VIAL SC SCH ×2 (08:41→21:11)
[2020-04-17] MEDS: Polyethylene Glycol 3350 17 GM Packet PO SCH (08:41)
[2020-04-17] MEDS: Senokot S 8.6-50 MG TAB PO SCH ×2 (08:41→21:10)
--- NOTE | 2020-04-17 08:43 | PRG ---
DATE OF SERVICE: 04/17/2020 SERVICE: Nephrology. SUBJECTIVE: A 39-year-old female seen in followup for acute renal failure due to volume depletion and rhabdomyolysis. The patient continued to complain of poor appetite, but reported that nausea has improved. She was able to ambulate yesterday. Swelling also has improved. OBJECTIVE: VITAL SIGNS: Temperature 98.5, pulse 100, respiratory rate 14, SpO2 of 96% on room air, blood pressure is 134/100. I and O in the last 24 hours showed total intake of 3331 with total output of 4700. GENERAL: Female, in no obvious distress. She looks depressed otherwise. No fever or cyanosis. HEENT: Normocephalic, atraumatic. Oral mucosa is moist. CARDIOVASCULAR: Regular rhythm and rate with normal heart sounds 1 and 2. RESPIRATORY: Fair air entry bilaterally with no obvious crackle or rhonchi or use of accessory muscles. GI: Full, soft, nontender, nondistended with normal bowel sounds. UROGENITAL: [place] catheter is in place draining urine. EXTREMITIES: Moderate left lower extremity edema noted diffusely. [id number]-[id number] edema of the right upper extremity noted as well. Other limbs are grossly normal with no edema or erythema. QUALITY ASSURANCE TESTER: Conscious, alert, oriented x3 with appropriate mental status. Cranial nerves 2 through 12 are grossly intact. PSYCHIATRIC: The patient looks depressed with some depressed affect. DIAGNOSTIC DATA: Chemistry showed sodium 140, potassium 3.4, chloride 96, CO2 of 27, BUN 78, creatinine 6.73, glucose 107, calcium 8.1, total bilirubin 0.3, AST 94, ALT 51, alkaline phosphatase 52, total protein 5.8, albumin 3.8. Of note, yesterday BUN was 82 and creatinine was 7.7. CPK is 3711, which is down from 5748 yesterday and more than 40,000 on presentation. ASSESSMENT: 1. Acute renal failure: Due to acute tubular necrosis from rhabdomyolysis and volume depletion. There seems to be some renal recovery at BUN went down from 82 to 78 and creatinine from 7.7 to 6.7. 2. Hypokalemia: Due to diuresis. 3. Metabolic acidosis, improved/resolved. 4. Left lower extremity weakness due to myalgia and rhabdomyolysis. 5. Poor appetite: Most likely due to acute tubular necrosis from renal failure. PLAN: 1. We will decrease Lasix infusion to 2.5 mg/hour to finish current bag. We anticipate polyuric phase of ATN to commence sooner than later. We will also continue normal saline at 100 mL/h. 2. We will discontinue sodium bicarbonate as metabolic acidosis has resolved. 3. [place] oral intake advised. 4. We will also replete potassium with potassium chloride and get magnesium level and replete that if indicated as well. 5. We will continue other treatment. Further treatment to follow depending on hospital course. Job ID: [id number]
--- NOTE | 2020-04-17 14:40 | PDOC.HOSPP ---
- Subjective Encounter Date: 04/17/20 Encounter Time: 08:00 Subjective: overnight, increased nausea, no vomiting. This morning, remains nauseated, received zofran shortly prior to encounter. ENdorses improvement in left lower extremity strength - Objective Vital Signs & Weight: Vital Signs (12 hours) Temp Pulse Pulse Pulse Resp BP BP 04/17/20 12:00 91 04/17/20 10:02 92 100 132/88 04/17/20 08:00 97.8 F 108 H 18 129/94 H 04/17/20 07:47 04/17/20 03:26 98.5 F 100 14 134/100 H BP Pulse Ox Pulse Ox 04/17/20 12:00 128/89 04/17/20 10:02 96 04/17/20 08:00 95 04/17/20 07:47 97 04/17/20 03:26 96 Weight Admit Weight 157 lb 8 oz Weight 173 lb 4.8 oz I&O: 04/16/20 04/17/20 04/18/20 06:59 06:59 06:59 Intake Total 1188.8 3331 Output Total 4275 4700 Balance -3086.2 -1369 Result Diagrams: 04/16/20 07:09 04/17/20 04:08 Hospitalist ROS - Review of Systems Constitutional: denies: fever, chills, sweats, weakness, malaise, other Respiratory: denies: cough, dry, shortness of breath, hemoptysis, SOB with excertion, pleuritic pain, sputum, wheezing, other Cardiovascular: denies: chest pain, palpitations, orthopnea, paroxysmal noc. dyspnea, edema, light headedness, other Gastrointestinal: denies: nausea, vomiting, abdominal pain, diarrhea, constipation, melena, hematochezia, other - Medication Medications: Active Medications Generic Name Dose Route Start Last Admin Trade Name Freq PRN Reason Stop Dose Admin Acetaminophen 650 mg 04/09/20 15:38 04/17/20 08:41 Tylenol PO 650 mg Q4H PRN Administration Headache/Fever/Mild Pain (1-3) Diazepam 2 mg 04/11/20 21:00 04/17/20 08:41 Valium PO 2 mg BID AB Administration Ergocalciferol 1.25 mg 04/11/20 09:00 04/11/20 09:08 Drisdol PO 1.25 mg Q7DAYS AB Administration Heparin Sodium (Porcine) 5,000 units 04/11/20 21:00 04/17/20 08:41 Heparin SC 5,000 units BID AB Administration Sodium Chloride 1,000 mls @ 100 mls/hr 04/16/20 10:30 04/17/20 06:09 Normal Saline 0.9% IV 1,000 mls .Q10H AB Administration Metoprolol Succinate 50 mg 04/13/20 09:00 04/17/20 08:41 Toprol Xl PO 50 mg DAILY AB Administration Ondansetron HCl 4 mg 04/10/20 13:47 04/17/20 08:41 Zofran SLOW IVP 4 mg Q4H PRN Administration Nausea/Vomiting Polyethylene Glycol 17 gm 04/15/20 09:00 04/17/20 08:41 Miralax PO 17 gm DAILY AB Administration Potassium Chloride 10 meq 04/17/20 09:00 04/17/20 08:41 Klor-Con 10 PO 04/17/20 21:01 10 meq TID AB Administration Quetiapine Fumarate 50 mg 04/12/20 21:00 04/16/20 21:40 Seroquel PO 50 mg HS AB Administration Senna/Docusate Sodium 2 tab 04/15/20 09:00 04/17/20 08:41 Senokot S PO 2 tab BID AB Administration Sodium Chloride 10 ml 04/10/20 21:00 04/17/20 08:42 Flush - Normal Saline IVF 10 ml Q12HR AB Administration - Exam General Appearance: NAD, awake alert Neck: no JVD Heart: no murmur, no gallops, no rubs Heart - other findings: regular rhythm, mildly tachycardic Respiratory: CTAB, no wheezes, no rales, no ronchi Extremities - other findings: b/l LE pitting edema L>R, to knee level Psychiatric: normal affect, normal behavior, A&O x 3 Hosp A/P - Plan #rhabdomyolysis #ATN -Mild rhabdomyolysis at this point -continue IVF and diuresis per nephrology #LLE weakness, pain -likely related to rhabdo - able to ambulate with assistance (04/15), continues to improve with physical therapy (04/17) #staph hominis bacteremia -BCx positive less than 24 hours apart; repeat BCx negative -completed ABx treatment ELOS 1-2 midnights
[2020-04-17] MEDS ORDERED: Magnesium Oxide 400 MG TAB PO SCH (14:45)
[2020-04-18] MEDS: Sodium Chloride 0.9% 1,000 ML IV SCH ×3 (00:34→22:41)
[2020-04-18] MEDS: Acetaminophen 325 MG TAB PO PRN ×4 (02:42→20:32)
[2020-04-18 05:02] LABS: Anion Gap 20 mmol/L (10-20); BUN (Urea Nitrogen) 68 mg/dL (7.0-18.7); Calc. Creatinine Clearance 16 mL/min (70-130); Calcium 8.6 mg/dL (7.8-10.44); Carbon Dioxide 28 mmol/L (22-29); Chloride 98 mmol/L (98-107); Estimated GFR-MDRD 8; Glucose 99 mg/dL (70-105); Potassium 3.6 mmol/L (3.5-5.1); Sodium 142 mmol/L (136-145)
[2020-04-18 05:05] LABS: Magnesium 1.4 mg/dL (1.6-2.6); Phosphorus 6.1 mg/dL (2.3-4.7)
[2020-04-18] MEDS ORDERED: Magnesium Sulfate 4 GM in Sodium Chloride 0.9% 250 ML 250 ML IVPB SCH (05:30)
--- NOTE | 2020-04-18 07:49 | PRG ---
DATE OF SERVICE: 04/18/2020 SERVICE: Nephrology. SUBJECTIVE: This 39-year-old female is seen in followup for acute renal failure and rhabdomyolysis. The patient is still complaining of nausea and poor appetite. Swelling is improving. Denied fever, chest pain, shortness of breath or abdominal pain. OBJECTIVE: VITAL SIGNS: Temperature 98.2, pulse 109, respiratory rate 18, SpO2 96% on room air, and blood pressure 122/72. I and O in the last 24 hours showed total intake of 3160 with total output of 4200. GENERAL: Young female, in no obvious distress. Afebrile. Anicteric. Acyanotic. HEENT: Normocephalic and atraumatic. Oral mucosa is moist. CARDIOVASCULAR: Regular rhythm and rate, but tachycardic. Normal heart sounds 1 and 2. RESPIRATORY: Fair air entry bilaterally. Few transmitted breath sounds, but no obvious crackle or rhonchi or use of accessory muscles. GI: Full, soft, nontender, and nondistended with normal bowel sounds. UROGENITAL: [place] catheter is in place draining some urine. EXTREMITIES: Moderate edema of left lower extremity and right upper extremity noted. Mild edema of other extremities appreciated. 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 Cranial nerves 2 through 12 are grossly intact. PSYCHIATRIC: Depressed mood and affect noted. DIAGNOSTIC DATA: Chemistry showed sodium of 142, potassium of 3.6, chloride of 98, CO2 of 28, BUN of 68, creatinine of 5.77, glucose of 99, calcium of 8.6, and phosphorus of 6.1. Albumin of 1.4. CPK is down to 2665. ASSESSMENT: 1. Acute renal failure: Due to acute tubular necrosis related to severe volume depletion and rhabdomyolysis. The patient is currently in the recovery phase of acute tubular necrosis. Creatinine is down to 5.77 from peak of 8.66. 2. Volume overload: Improved significantly with diuretics. With the patient in recovery phase of acute tubular necrosis, we will discontinue Lasix. The patient, however, is still making adequate urine and it is anticipated the urine output will be continued to increase. Due to poor oral intake and increased risk of dehydration, we will continue gentle IV hydration with normal saline while monitoring the intake and output. 3. Hypocalcemia. 4. Vitamin D deficiency. 5. Metabolic acidosis. 6. Hypomagnesemia: Most likely due to diuretic therapy. 7. Severe rhabdomyolysis: Improved with CPK down to 2665. 8. Left lower extremity weakness. PLAN: 1. We will monitor intake and output strictly. We will continue IV fluid therapy for now since it is anticipated that the patient will proceed into the polyuric phase of ATN recovery. Oral intake is still abysmal. We will plan on discontinuing IV fluid once oral intake improves. 2. We will replete serum magnesium with 4 g of magnesium sulfate. 3. Aggressive physical therapy recommended. DISPOSITION: In view of resolving ATN, the patient can be discharged to acute rehab for restorative therapy. We will continue to follow the patient over there. Please call for any clarification or questions. Care plan was discussed with the patient at the bedside and she verbalized understanding. Job ID: [id number]
[2020-04-18] MEDS: Ondansetron PF 4 MG/2 ML Vial SLOW IVP PRN ×3 (07:58→17:56)
[2020-04-18] MEDS: Senokot S 8.6-50 MG TAB PO SCH ×2 (07:59→20:32)
[2020-04-18] MEDS: Ergocalciferol 1.25 MG(50,000 UNITS) CAP PO SCH (07:59)
[2020-04-18] MEDS: Polyethylene Glycol 3350 17 GM Packet PO SCH (07:59)
[2020-04-18] MEDS: Heparin 5,000 UNITS/ML VIAL SC SCH ×2 (07:59→20:31)
[2020-04-18] MEDS: Diazepam 2 MG TAB PO SCH ×2 (08:00→20:33)
[2020-04-18] MEDS ORDERED: Potassium Chloride 20 MEQ TAB PO SCH (10:00)
[2020-04-18] MEDS: pyridOXINE 50 MG (B6) TAB PO PRN ×2 (11:13→17:56)
[2020-04-18 14:14] VITALS: BMI 29.9
--- NOTE | 2020-04-18 21:04 | PDOC.HOSPP ---
- Subjective Encounter Date: 04/18/20 Encounter Time: 09:00 Subjective: no overnight events. this morning, complains of persistent nausea. renal function continues to improve - Objective Vital Signs & Weight: Vital Signs (12 hours) Temp Pulse Resp BP Pulse Ox 04/18/20 20:11 98.5 F 102 H 16 136/92 H 98 04/18/20 15:11 98.6 F 89 16 124/80 96 04/18/20 11:13 98 F 86 18 131/92 H 97 Weight Admit Weight 157 lb 8 oz Weight 174 lb 3.2 oz I&O: 04/17/20 04/18/20 04/19/20 06:59 06:59 06:59 Intake Total 3330 3160 1680 Output Total 2309 9601 2350 Balance -1369 -1040 -670 Result Diagrams: 04/16/20 07:09 04/18/20 04:09 Hospitalist ROS - Review of Systems Constitutional: denies: fever, chills, sweats, weakness, malaise, other Respiratory: denies: cough, dry, shortness of breath, hemoptysis, SOB with excertion, pleuritic pain, sputum, wheezing, other Cardiovascular: denies: chest pain, palpitations, orthopnea, paroxysmal noc. dyspnea, edema, light headedness, other Gastrointestinal: reports: nausea. denies: vomiting, abdominal pain, constipation Genitourinary: denies: dysuria, frequency, incontinence, hematuria, retention, other - Medication Medications: Active Medications Generic Name Dose Route Start Last Admin Trade Name Freq PRN Reason Stop Dose Admin Acetaminophen 650 mg 04/09/20 15:38 04/18/20 20:32 Tylenol PO 650 mg Q4H PRN Administration Headache/Fever/Mild Pain (1-3) Diazepam 2 mg 04/11/20 21:00 04/18/20 20:33 Valium PO 2 mg BID AB Administration Ergocalciferol 1.25 mg 04/11/20 09:00 04/18/20 07:59 Drisdol PO 1.25 mg Q7DAYS AB Administration Heparin Sodium (Porcine) 5,000 units 04/11/20 21:00 04/18/20 20:31 Heparin SC 5,000 units BID AB Administration Sodium Chloride 1,000 mls @ 100 mls/hr 04/16/20 10:30 04/18/20 12:29 Normal Saline 0.9% IV 1,000 mls .Q10H AB Administration Metoprolol Succinate 50 mg 04/13/20 09:00 04/18/20 07:59 Toprol Xl PO 50 mg DAILY AB Administration Ondansetron HCl 4 mg 04/10/20 13:47 04/18/20 17:56 Zofran SLOW IVP 4 mg Q4H PRN Administration Nausea/Vomiting Polyethylene Glycol 17 gm 04/15/20 09:00 04/18/20 07:59 Miralax PO Not Given DAILY AB Pyridoxine HCl 25 mg 04/18/20 10:42 04/18/20 17:56 Vitamin B 6 PO 25 mg Q6H PRN Administration Nausea/Vomiting Quetiapine Fumarate 50 mg 04/12/20 21:00 04/18/20 20:32 Seroquel PO 50 mg HS AB Administration Senna/Docusate Sodium 2 tab 04/15/20 09:00 04/18/20 20:32 Senokot S PO 2 tab BID AB Administration Sodium Chloride 10 ml 04/10/20 21:00 04/18/20 08:00 Flush - Normal Saline IVF Not Given Q12HR AB - Exam General Appearance: NAD, awake alert Heart: RRR, no murmur, no gallops, no rubs, normal peripheral pulses Respiratory: CTAB, no wheezes, no rales, no ronchi, normal chest expansion, no tachypnea, normal percussion Gastrointestinal: soft, non-tender, non-distended, normal bowel sounds, no palpable masses, no hepatomegaly, no splenomegaly, no bruit Extremities: 2+ LE edema Extremities - other findings: left > right, unchanged Psychiatric: normal affect, normal behavior, A&O x 3 Hosp A/P - Plan #rhabdomyolysis #ATN -renal function continues to improve - #LLE weakness, pain -likely related to rhabdo - able to ambulate with assistance (04/15) #staph hominis bacteremia -BCx positive less than 24 hours apart; repeat BCx negative -completed ABx treatment ELOS 1 midnight
[2020-04-19] MEDS: Acetaminophen 325 MG TAB PO PRN ×3 (03:56→15:50)
[2020-04-19 05:05] LABS: Albumin 3.6 g/dL (3.5-5.0); Anion Gap 16 mmol/L (10-20); BUN (Urea Nitrogen) 55 mg/dL (7.0-18.7); BUN/Creatinine Ratio 13.22; CK (CPK) 1578 U/L (29-168); Calc. Creatinine Clearance 22 mL/min (70-130); Calcium 8.8 mg/dL (7.8-10.44); Carbon Dioxide 26 mmol/L (22-29); Chloride 102 mmol/L (98-107); Estimated GFR-MDRD 12; Glucose 97 mg/dL (70-105); Phosphorus 4.9 mg/dL (2.3-4.7); Potassium 3.8 mmol/L (3.5-5.1); Sodium 140 mmol/L (136-145)
[2020-04-19] MEDS: Diazepam 2 MG TAB PO SCH (08:19)
[2020-04-19] MEDS: Polyethylene Glycol 3350 17 GM Packet PO SCH (08:19)
[2020-04-19] MEDS: Senokot S 8.6-50 MG TAB PO SCH (08:20)
[2020-04-19] MEDS: Heparin 5,000 UNITS/ML VIAL SC SCH (08:20)
[2020-04-19] MEDS: Ondansetron PF 4 MG/2 ML Vial SLOW IVP PRN (14:03)
[2020-04-19 16:07] VITALS: BP 134/86; TEMP 99
--- NOTE | 2020-04-19 18:20 | PRG ---
DATE OF SERVICE: 04/18/2020 SERVICE: Nephrology. SUBJECTIVE: A 39-year-old female seen in followup for acute renal failure and volume overload. Nausea is improving. Oral intake remains suboptimal. No fever, headache, shortness of breath, or abdominal pain. OBJECTIVE: VITAL SIGNS: Temperature 98.3, pulse 112, respiratory rate 16, SpO2 of 97% on room air, and blood pressure is 136/85. I and O in the last 24 hours showed total intake of 3100 with total output of 3525. GENERAL: Female, in no distress. Afebrile. Anicteric. Acyanotic. HEENT: Normocephalic and atraumatic. Oral mucosa is moist. CARDIOVASCULAR: Regular rhythm and rate, but tachycardic. RESPIRATORY: Fair air entry bilaterally. No obvious crackle or rhonchi or use of accessory muscles. GI: Full, soft, nontender, and nondistended with normal bowel sounds. EXTREMITIES: [id number] edema of left lower extremity as well as trace edema of other extremities noted. No erythema appreciated. 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 Cranial nerves 2 through 12 are grossly intact. The patient moves all extremities. The power of left lower extremity is reduced. DIAGNOSTIC DATA: Renal function panel today showed sodium 140, potassium 3.8, chloride 102, CO2 of 26, BUN 53, creatinine 4.16, glucose 97, calcium 8.8, phosphorus 4.9, and albumin 3.6. CPK is 1578 from peak of more than 40,000 on presentation. ASSESSMENT: 1. Acute renal failure due to acute tubular necrosis related to severe volume depletion and severe rhabdomyolysis. The patient is now in recovery phase. Creatinine is trending downward. 2. Volume overload. Improving. 3. Metabolic acidosis: Resolved. 4. Hypertension: Control is suboptimal. 5. Tachycardia: Mostly sinus tachycardia. 6. Left lower extremity weakness: This is felt to be due to severe rhabdomyolysis. 7. Persistent nausea: Improving. Due to acute renal failure. 8. Vitamin D deficiency. 9. Hypomagnesemia, status post supplementation. 10. Severe rhabdomyolysis with CPK more than 40,000 on presentation. Improved. CPK today is 1578. PLAN: 1. Gilmer oral intake advised. 2. Increase metoprolol 200 mg p.o. daily. This will take care of both blood pressure as well as tachycardia. 3. Continue other medications. 4. Disposition: The patient can be discharged to rehab for further restorative therapy. We will follow the patient over there. We will recheck renal function tests. 5. We will continue to monitor intake and output to prevent dehydration due to polyuric phase of ATN recovery. Job ID: [id number]
--- NOTE | 2020-04-20 13:00 | DIS ---
DATE OF ADMISSION: 04/09/2020 DATE OF DISCHARGE: 04/19/2020 HOSPITAL COURSE: Ms. Hanley is a 39-year-old female, who presented with hypotension and generalized weakness. She was found to be dehydrated and was diagnosed with severe rhabdomyolysis with acute tubular necrosis. The patient received aggressive fluids through IV and diuresed p.r.n. swelling. Nephrology was consulted and after discussion with the patient and considering her proper urine output, it was decided to not to initiate dialysis. Her renal function improved two days prior to discharge and her symptoms, especially the right lower extremity weakness improved as well. She was able to ambulate with mild assistance from Physical Therapy. She was discharged to rehab with followup appointment with Nephrology. PHYSICAL EXAMINATION: VITAL SIGNS: Blood pressure 134/86, temperature 99, pulse 95, respiratory rate 18, and oxygen saturation 98% on room air. GENERAL: Obese, in no apparent distress. Awake and alert. CARDIAC: Regular rate and rhythm. No murmurs, gallops, or rubs. Normal peripheral pulses. RESPIRATORY: Clear to auscultation bilaterally. No wheezing, rales, or rhonchi. Normal chest expansion. No tachypnea. GI: Soft, nontender, and nondistended. Normal bowel sounds. EXTREMITY: +2 pitting edema, left extremity greater than right that is unchanged. Duplex ultrasound ruled out DVT. PSYCHIATRIC: Blunted affect. Alert and oriented x3. MEDICATION LIST: New medications. 1. Tylenol p.r.n. 2. Zofran p.r.n. 3. Hydralazine p.r.n. Continued medications: 1. Zanaflex. 2. Seroquel. 3. Norethindrone. 4. Metoprolol succinate. 5. Valium. 6. Xanax. Discontinued medications: Lisinopril and hydrochlorothiazide. Job ID: [id number]
== END 2020-04-19 17:20 | DRG 557 ==
LOC: ERS 14:10 → 2NO 15:56
PROVIDERS: ADMIT Internal Medicine; ATTEND Internal Medicine
DX: M62.82 Rhabdomyolysis (principal); N17.0 Acute kidney failure with tubular necrosis; I24.8 Other forms of acute ischemic heart disease; E87.2 Acidosis; F32.9 Major depressive disorder, single episode, unspecified; E86.0 Dehydration; E87.5 Hyperkalemia; I95.9 Hypotension, unspecified; I10 Essential (primary) hypertension; F51.04 Psychophysiologic insomnia; E55.9 Vitamin D deficiency, unspecified; N05.9 Unspecified nephritic syndrome with unspecified morphologic changes; R00.0 Tachycardia, unspecified; E88.09 Other disorders of plasma-protein metabolism, not elsewhere classified; E87.70 Fluid overload, unspecified; D64.9 Anemia, unspecified; T50.2X5A Adverse effect of carbonic-anhydrase inhibitors, benzothiadiazides and other diuretics, initial encounter; Z98.51 Tubal ligation status
CPT/HCPCS: 36415; 51702; 71045; 76770; 80048; 80053; 80069; 80074; 80076; 80202; 80306; 80307; 81003; 81015; 82306; 82550; 82553; 82728; 82805; 83605; 83690; 83735; 83874; 84100; 84443; 84484; 84703; 85025; 85027; 85379; 85610; 85730; 86140; 87040; 87077; 87086; 87149; 87186; 87804; 93005; 93306; 96361; 96374; 96375; J1644; J1940; J2270; J2405; J3370; J3475; J3490; J7050; J7070; P9047